=== PATIENT | female | born 1950 | race Caucasian/White ===

== ENCOUNTER 2020-07-31 10:59 | Outpatient (REF) | payer MEDICARE, SELFPAY ==
--- NOTE | 2020-07-31 11:04 | MM_ITS ---
EXAMINATION: MM SCREENING DIGITAL BREAST TOMOSYNTHESIS, BILATERAL CLINICAL INFORMATION: Screening. Asymptomatic. The lifetime risk of breast cancer based on the Tyrer-Cuzick Model is 6.4%. COMPARISON: Mammography: July 26, 2019 and studies dating back to May 28, 2012 TECHNIQUE: Digital breast tomosynthesis is performed in both the craniocaudal and mediolateral oblique views along with computer-aided detection (CAD). Synthesized 2D images are generated from the tomosynthesis. FINDINGS: The breasts are heterogeneously dense, which may obscure small masses (ACR BI-RADS breast composition Category c). There are no significant masses, abnormal calcifications, or other abnormalities. Stable region of architectural distortion from previous surgery seen upper outer aspect of the right breast. MM/MM tomosynthesis screening BI IMPRESSION: There are no significant changes from prior study. ASSESSMENT: BI-RADS 2: Benign RECOMMENDATION: Routine annual mammography screening. This patient's information was entered into a reminder system with a target due date for their next mammogram.
== END 2020-07-31 11:00 | disposition home or self-care (01) ==
LOC: HO.MAMMO 10:59
PROVIDERS: Visit Provider Internal Medicine
DX: Z12.31 Encounter for screening mammogram for malignant neoplasm of breast (principal)
CPT/HCPCS: 77063; 77067

== ENCOUNTER 2020-12-17 10:53 | Outpatient (REF) | payer MEDICARE, OTHER, SELFPAY ==
[2020-12-17 11:46] LABS: Basophils Percent Auto 0.9 % (0-2); Eosinophils Absolute Auto 0.2 X10*3/uL (0.0-0.4); Hematocrit 42.1 % (37-47); Hemoglobin 14.5 g/dl (12.0-16.0); Imm Gran Abs Auto 0.01 X10*3/uL (0.00-0.03); Imm Gran Pct Auto 0.2 % (0.0-0.4); Lymphocytes Absolute Auto 1.3 X10*3/uL (1.2-4.9); Lymphocytes Percent Auto 28.7 % (20-40); MANUAL DIFF FLAG NO; Mean Corpuscular HGB Conc 34.4 g/dl (31.0-35.0); Mean Corpuscular Hemoglobin 33.5 pg (27.0-33.0); Mean Corpuscular Volume 97.2 fL (80-98); Mean Platelet Volume 8.9 fL (9.4-12.3); Monocytes Absolute Auto 0.6 X10*3/uL (0.1-1.2); Monocytes Percent Auto 12.7 % (2-11); Neutrophils Absolute Auto 2.4 X10*3/uL (2.0-8.3); Neutrophils Percent Auto 53.5 % (45-73); Platelet Count 239 X10*3/uL (160-400); Red Blood Count 4.33 X10*6/uL (4.20-5.50); Red Cell Distribution Width 12.2 % (11.0-16.0); White Blood Count 4.5 X10*3/uL (4.8-10.8)
[2020-12-17 12:15] LABS: Alanine Aminotransferase 8 U/L (0-31); Albumin Level 4.2 g/dL (3.5-5.0); Alkaline Phosphatase 85 U/L (39-117); Anion Gap 12 (12-20); Aspartate Amino Transferase 21 U/L (5-31); Bilirubin Total 0.8 mg/dL (0.0-1.0); Blood Urea Nitrogen 22 mg/dL (9-16); Calcium 9.7 mg/dL (8.4-10.2); Carbon Dioxide 30 mmol/L (22-29); Chloride 104 mmol/L (96-108); Cholesterol 238 mg/dL; Estimated Glomerular Filt Rate 57; Glucose Fasting 88 mg/dL (60-99); HDL Cholesterol 81 mg/dL; LDL Cholesterol Calculated 145 mg/dl; Potassium 4.2 mmol/L (3.3-5.1); Sodium 142 mmol/L (135-145); Total Protein 7.2 g/dL (6.5-8.0); Triglycerides 60 mg/dL
[2020-12-17 12:34] LABS: T4 Thyroxine 6.5 ug/dL (4.5-12.0); Thyroid Stimulating Hormone 1.19 uIU/mL (0.32-4.0); Vitamin D 25-OH Total 48.7 ng/mL (>30)
[2020-12-17 12:53] LABS: Folate 19.3 ng/mL (> or = 4.0); Vitamin B12 639 pg/mL (200-900)
[2020-12-17 12:57] LABS: Glucose Urine UA NEG (NEG); Leukocyte Esterase Urine TRACE (NEG); Nitrite Urine NEG (NEG); Specific Gravity - Urine >= 1.030 (1.005-1.025); Urine Blood NEG (NEG); Urine Ketones NEG (NEG); Urine Protein NEG (NEG-TRACE)
[2020-12-17 12:59] LABS: Appearance Urine HAZY; Color Urine YELLOW
[2020-12-17 13:42] LABS: RBC Urine 0 /HPF (0); Squamous Epithelial Cell Urine 1+ /LPF
[2020-12-17 13:43] LABS: Mucus Urine 1+ /LPF; Oval Fat Bodies Urine NOTED
== END 2020-12-17 10:54 | disposition home or self-care (01) ==
LOC: HO.LAB 10:53
PROVIDERS: PCP Internal Medicine; Visit Provider Internal Medicine
DX: Z00.00 Encounter for general adult medical examination without abnormal findings (principal); I10 Essential (primary) hypertension; E78.00 Pure hypercholesterolemia, unspecified
CPT/HCPCS: 36415; 80053; 80061; 81001; 82306; 82607; 82746; 84436; 84443; 85025

== ENCOUNTER 2021-02-05 09:42 | Outpatient (REF) | payer MEDICARE, OTHER, SELFPAY ==
--- NOTE | ~2021-02-05 | MM_ITS ---
EXAMINATION: BONE DENSITOMETRY CLINICAL INDICATION: Other specified disorders of bone density and structure. COMPARISON: Previous BD dated 08/01/2018 and baseline BD dated 08/09/2005. TECHNIQUE: Using a [employer] DXA System (software version: 13.1) manufactured by [employer], dual-energy x-ray absorptiometry was performed of the lumbar spine and left hip. The images are of good technical quality. Summary results are attached. FINDINGS: AP SPINE L1-L4: Current: BMD 1.144 g/cm2, Z-score 1.7, T-score -0.3, normal, 2.4% increase from previous, 6.7% increase from baseline (<5% change is not significant). Prior: BMD 1.117 g/cm2. Baseline: BMD 1.072 g/cm2. LEFT FEMUR, NECK: Current: BMD 0.847 g/cm2, Z-score 0.6, T-score -1.4, osteopenia. Prior: BMD 0.813 g/cm2. Baseline: BMD 0.919 g/cm2. LEFT FEMUR, TOTAL: Current: BMD 0.839 g/cm2, Z-score 0.4, T-score -1.3, osteopenia, 0.8% decrease from previous, 11.4% decrease from baseline (<5% change is not significant). Prior: BMD 0.846 g/cm2. Baseline: BMD 0.947 g/cm2. IDENTIFIED RISK FACTORS: Menopause, hysterectomy. HISTORY OF FRACTURE: None listed. MEDICATIONS: Calcium supplements or multivitamin, vitamin D. MM/XR DEXA axial skeleton IMPRESSION: 1. DIAGNOSIS: Osteopenia based on the lowest T-score value of -1.4 in the femoral neck applying World Health Organization criteria. 2. 10-YEAR FRACTURE RISK PREDICTION, FRAX: Major osteoporotic fracture (clinical spine, forearm, hip or shoulder) 9.9%. Hip fracture 1.6%. 3. Treatment Recommendations: NOF guidelines recommend consideration for treatment in postmenopausal women and men age 50 and older presenting with the following: -A hip or vertebral (clinical or morphometric) fracture. -T-score less than or equal to -2.5 at the femoral neck or spine after appropriate evaluation to exclude secondary causes. -Low bone mass at the hip or spine and a 10-year fracture probability by FRAX of greater than or equal to 3% for hip fracture or greater than or equal to 20% for major osteoporotic fracture based on the [place] adapted WHO algorithm. 4. Other Recommendations: All treatment decisions require clinical judgment and consideration of individual patient factors, including patient preferences, comorbidities, previous drug use, risk factors not captured in the FRAX model (e.g. frailty, falls, vitamin D deficiency, increased bone turnover, interval significant decline in bone density) and possible under or overestimation of fracture risk by FRAX. Additional medical evaluation for secondary cause of low bone mineral density may be appropriate. FUTURE SCAN RECOMMENDATION: People with diagnosed cases of osteoporosis or at high risk for fracture should have regular bone mineral density tests. For patients eligible for Medicare, routine testing is allowed once every 2 years. The testing frequency can be increased to one year for patients who have rapidly progressing disease, those who are receiving or discontinuing medical therapy to restore bone mass, or have additional risk factors.
== END 2021-02-05 09:43 | disposition home or self-care (01) ==
LOC: HO.MAMMO 09:42
PROVIDERS: PCP Internal Medicine; Visit Provider Internal Medicine
DX: Z13.820 Encounter for screening for osteoporosis (principal); M85.859 Other specified disorders of bone density and structure, unspecified thigh; Z78.0 Asymptomatic menopausal state; Z98.890 Other specified postprocedural states; Z79.899 Other long term (current) drug therapy
CPT/HCPCS: 77080

== ENCOUNTER 2021-08-26 14:18 | Outpatient (REF) | payer MEDICARE, OTHER, SELFPAY ==
--- NOTE | ~2021-08-26 | MM_ITS ---
EXAMINATION: MM SCREENING DIGITAL BREAST TOMOSYNTHESIS, BILATERAL CLINICAL INFORMATION: Screening. Asymptomatic.. Status post previous right breast biopsy. The lifetime risk of breast cancer based on the Tyrer-Cuzick Model is 4.0%. COMPARISON: Mammography: July 31, 2020 and studies dating back to May 28, 2012 TECHNIQUE: Digital breast tomosynthesis is performed in both the craniocaudal and mediolateral oblique views along with computer-aided detection (CAD). Synthesized 2D images are generated from the tomosynthesis. FINDINGS: The breasts are heterogeneously dense, which may obscure small masses (ACR BI-RADS breast composition Category c). There are no new significant masses, abnormal calcifications, or other abnormalities. Region of architectural distortion anterior right breast again seen from previous biopsy. MM/MM tomosynthesis screening BI IMPRESSION: There are no significant changes from prior study. ASSESSMENT: BI-RADS 2: Benign RECOMMENDATION: Routine annual mammography screening. This patient's information was entered into a reminder system with a target due date for their next mammogram.
== END 2021-08-26 14:19 | disposition home or self-care (01) ==
LOC: HO.MAMMO 14:18
PROVIDERS: PCP Internal Medicine; Visit Provider Internal Medicine
DX: Z12.31 Encounter for screening mammogram for malignant neoplasm of breast (principal)
CPT/HCPCS: 77063; 77067

== ENCOUNTER 2022-03-30 09:49 | Outpatient (REF) | payer MEDICARE, OTHER, SELFPAY ==
[2022-03-30 10:03] LABS: MANUAL DIFF FLAG NO
[2022-03-30 10:18] LABS: Basophils Absolute Auto 0.1 X10*3/uL (0.0-0.2); Basophils Percent Auto 1.1 % (0-2); Eosinophils Absolute Auto 0.2 X10*3/uL (0.0-0.4); Eosinophils Percent Auto 5.5 % (0-4); Hematocrit 44.6 % (37.0-47.0); Hemoglobin 15.2 g/dl (12.0-16.0); Imm Gran Abs Auto 0.01 X10*3/uL (0.00-0.03); Imm Gran Pct Auto 0.2 % (0.0-0.4); Lymphocytes Absolute Auto 1.3 X10*3/uL (1.2-4.9); Lymphocytes Percent Auto 29.1 % (20-40); Mean Corpuscular HGB Conc 34.1 g/dl (31.0-35.0); Mean Corpuscular Hemoglobin 33.6 pg (27.0-33.0); Mean Corpuscular Volume 98.5 fL (80.0-98.0); Mean Platelet Volume 8.8 fL (9.4-12.3); Monocytes Absolute Auto 0.5 X10*3/uL (0.1-1.2); Monocytes Percent Auto 10.2 % (2-11); Neutrophils Absolute Auto 2.4 x10*3/uL (2.0-8.3); Neutrophils Percent Auto 53.9 % (45-73); Platelet Count 267 X10*3/uL (160-400); Red Blood Count 4.53 X10*6/uL (4.20-5.50); Red Cell Distribution Width 12.3 % (11.0-16.0); White Blood Count 4.4 X10*3/uL (4.8-10.8)
[2022-03-30 10:48] LABS: Alanine Aminotransferase 13 U/L (0-31); Albumin Level 4.3 g/dL (3.5-5.0); Alkaline Phosphatase 93 U/L (39-117); Anion Gap 16 (12-20); Aspartate Amino Transferase 23 U/L (5-31); Bilirubin Total 0.7 mg/dL (0.0-1.0); Blood Urea Nitrogen 18 mg/dL (9-16); Calcium 9.8 mg/dL (8.4-10.2); Carbon Dioxide 27 mmol/L (22-29); Chloride 104 mmol/L (96-108); Estimated Glomerular Filt Rate 54; Glucose Random 94 mg/dL (60-115); Potassium 4.5 mmol/L (3.3-5.1); Sodium 142 mmol/L (135-145); Total Protein 7.4 g/dL (6.5-8.0)
[2022-03-30 11:09] LABS: Free T4 (Free Thyroxine) 0.96 ng/dL (0.71-1.85); Vitamin D 25-OH Total 49.8 ng/mL (>30)
[2022-03-30 11:11] LABS: Thyroid Stimulating Hormone 1.88 uIU/mL (0.32-4.0)
[2022-03-30 11:17] LABS: Folate 17.3 ng/mL (> or = 4.0); Vitamin B12 573 pg/mL (200-900)
== END 2022-03-30 09:50 | disposition home or self-care (01) ==
LOC: HO.LAB 09:49
PROVIDERS: PCP Internal Medicine; Visit Provider Nurse Practitioner
DX: Z01.818 Encounter for other preprocedural examination (principal); E78.00 Pure hypercholesterolemia, unspecified; M85.859 Other specified disorders of bone density and structure, unspecified thigh; M81.0 Age-related osteoporosis without current pathological fracture
CPT/HCPCS: 36415; 80053; 82306; 82607; 82746; 84439; 84443; 85025; 99202

== ENCOUNTER 2022-08-30 07:58 | Outpatient (REF) | payer MEDICARE, OTHER, SELFPAY ==
--- NOTE | ~2022-08-30 | MM_ITS ---
EXAMINATION: MM SCREENING DIGITAL BREAST TOMOSYNTHESIS, BILATERAL CLINICAL INFORMATION: Screening. Asymptomatic. Status post previous right breast biopsy with benign result. The lifetime risk of breast cancer based on the Tyrer-Cuzick Model is 4.0%. COMPARISON: Mammography: August 26, 2021 and studies dating back to June 10, 2015 TECHNIQUE: Digital breast tomosynthesis is performed in both the craniocaudal and mediolateral oblique views along with computer-aided detection (CAD). Synthesized 2D images are generated from the tomosynthesis. FINDINGS: The breasts are heterogeneously dense, which may obscure small masses (ACR BI-RADS breast composition Category c). There is stable architectural distortion from previous biopsy of the right breast in the upper outer aspect. No new abnormal dominant mass or suspicious grouping of microcalcifications is identified. MM/MM tomosynthesis screening BI IMPRESSION: No significant changes ASSESSMENT: BI-RADS 2: Benign RECOMMENDATION: Routine annual mammography screening. This patient's information was entered into a reminder system with a target due date for their next mammogram.
== END 2022-08-30 07:59 | disposition home or self-care (01) ==
LOC: HO.MAMMO 07:58
PROVIDERS: PCP Internal Medicine; Visit Provider Internal Medicine
DX: Z12.31 Encounter for screening mammogram for malignant neoplasm of breast (principal)
CPT/HCPCS: 77063; 77067

== ENCOUNTER 2022-09-16 12:07 | Outpatient (REF) | payer MEDICARE, OTHER, SELFPAY ==
[2022-09-16 12:29] LABS: MANUAL DIFF FLAG NO
[2022-09-16 13:02] LABS: Basophils Absolute Auto 0.1 X10*3/uL (0.0-0.2); Basophils Percent Auto 0.9 % (0-2); Eosinophils Absolute Auto 0.3 X10*3/uL (0.0-0.4); Eosinophils Percent Auto 4.7 % (0-4); Hematocrit 41.6 % (37.0-47.0); Hemoglobin 14.3 g/dl (12.0-16.0); Imm Gran Abs Auto 0.01 X10*3/uL (0.00-0.03); Imm Gran Pct Auto 0.2 % (0.0-0.4); Lymphocytes Absolute Auto 1.6 X10*3/uL (1.2-4.9); Lymphocytes Percent Auto 30.7 % (20-40); Mean Corpuscular HGB Conc 34.4 g/dl (31.0-35.0); Mean Corpuscular Hemoglobin 33.1 pg (27.0-33.0); Mean Corpuscular Volume 96.3 fL (80.0-98.0); Mean Platelet Volume 9.1 fL (9.4-12.3); Monocytes Absolute Auto 0.7 X10*3/uL (0.1-1.2); Monocytes Percent Auto 12.5 % (2-11); Neutrophils Absolute Auto 2.7 x10*3/uL (2.0-8.3); Platelet Count 262 X10*3/uL (160-400); Red Blood Count 4.32 X10*6/uL (4.20-5.50); Red Cell Distribution Width 11.9 % (11.0-16.0); White Blood Count 5.4 X10*3/uL (4.8-10.8)
[2022-09-16 14:16] LABS: Alanine Aminotransferase 10 U/L (0-31); Alkaline Phosphatase 83 U/L (39-117); Anion Gap 12 (12-20); Aspartate Amino Transferase 22 U/L (5-31); Bilirubin Total 0.8 mg/dL (0.0-1.0); Blood Urea Nitrogen 18 mg/dL (9-16); Calcium 9.3 mg/dL (8.4-10.2); Carbon Dioxide 28 mmol/L (22-29); Chloride 104 mmol/L (96-108); Cholesterol 273 mg/dL; Estimated Glomerular Filt Rate 51; Glucose Random 81 mg/dL (60-115); HDL Cholesterol 62 mg/dL; LDL Cholesterol Calculated 194 mg/dl; Potassium 4.2 mmol/L (3.3-5.1); Sodium 140 mmol/L (135-145); Total Protein 6.9 g/dL (6.5-8.0); Triglycerides 87 mg/dL
== END 2022-09-16 12:08 | disposition home or self-care (01) ==
LOC: HO.LAB 12:07
PROVIDERS: PCP Internal Medicine; Visit Provider Internal Medicine
DX: E78.00 Pure hypercholesterolemia, unspecified (principal)
CPT/HCPCS: 36415; 80053; 80061; 85025

== ENCOUNTER 2022-12-26 12:16 | Outpatient (REF) | payer MEDICARE, OTHER, SELFPAY ==
[2022-12-26 14:24] LABS: Alanine Aminotransferase 9 U/L (0-31); Alkaline Phosphatase 74 U/L (39-117); Anion Gap 13 (12-20); Aspartate Amino Transferase 19 U/L (5-31); Bilirubin Total 0.7 mg/dL (0.0-1.0); Blood Urea Nitrogen 16 mg/dL (9-16); Calcium 9.8 mg/dL (8.4-10.2); Carbon Dioxide 28 mmol/L (22-29); Chloride 103 mmol/L (96-108); Cholesterol 164 mg/dL; Estimated Glomerular Filt Rate 60; Glucose Random 83 mg/dL (60-115); HDL Cholesterol 67 mg/dL; LDL Cholesterol Calculated 80 mg/dl; Potassium 3.9 mmol/L (3.3-5.1); Sodium 140 mmol/L (135-145); Total Protein 7.1 g/dL (6.5-8.0); Triglycerides 89 mg/dL
== END 2022-12-26 12:17 | disposition home or self-care (01) ==
LOC: HO.LAB 12:16
PROVIDERS: PCP Internal Medicine; Visit Provider Internal Medicine
DX: E78.00 Pure hypercholesterolemia, unspecified (principal)
CPT/HCPCS: 36415; 80053; 80061

== ENCOUNTER 2023-02-07 08:51 | Outpatient (REF) | payer MEDICARE, OTHER, SELFPAY ==
--- NOTE | ~2023-02-07 | MM_ITS ---
EXAMINATION: BONE DENSITOMETRY CLINICAL INDICATION: Age-related osteoporosis without current pathological fracture. COMPARISON: Previous BD dated 02/05/2021 and baseline BD dated 08/09/2005. TECHNIQUE: Using a [employer] DXA System (software version: 13.1) manufactured by [employer], dual-energy x-ray absorptiometry was performed of the lumbar spine and left hip. The images are of good technical quality. Summary results are attached. FINDINGS: LEFT FEMUR, NECK: Current: BMD 0.825 g/cm2, Z-score 0.5, T-score -1.5, osteopenia. Prior: BMD 0.847 g/cm2. Baseline: BMD 0.919 g/cm2. LEFT FEMUR, TOTAL: Current: BMD 0.793 g/cm2, Z-score 0.2, T-score -1.7, osteopenia, 5.5% decrease from previous, 16.3% decrease from baseline (<5% change is not significant). Prior: BMD 0.839 g/cm2. Baseline: BMD 0.947 g/cm2. AP SPINE L1-L4: Current: BMD 1.168 g/cm2, Z-score 1.9, T-score -0.1, normal, 2.1% increase from previous, 9.0% increase from baseline (<5% change is not significant). Prior: BMD 1.144 g/cm2. Baseline: BMD 1.072 g/cm2. IDENTIFIED RISK FACTORS: Menopause, hysterectomy, thiazide. HISTORY OF FRACTURE: None listed. MEDICATIONS: Calcium supplements or multivitamin, vitamin D. MM/XR DEXA axial skeleton IMPRESSION: 1. DIAGNOSIS: Osteopenia based on the lowest T-score value of -1.7 in the total femur applying World Health Organization criteria. 2. 10-YEAR FRACTURE RISK PREDICTION, FRAX: Major osteoporotic fracture (clinical spine, forearm, hip or shoulder) 10.9%. Hip fracture 2.2%. 3. Treatment Recommendations: NOF guidelines recommend consideration for treatment in postmenopausal women and men age 50 and older presenting with the following: -A hip or vertebral (clinical or morphometric) fracture. -T-score less than or equal to -2.5 at the femoral neck or spine after appropriate evaluation to exclude secondary causes. -Low bone mass at the hip or spine and a 10-year fracture probability by FRAX of greater than or equal to 3% for hip fracture or greater than or equal to 20% for major osteoporotic fracture based on the [place] adapted WHO algorithm. 4. Other Recommendations: All treatment decisions require clinical judgment and consideration of individual patient factors, including patient preferences, comorbidities, previous drug use, risk factors not captured in the FRAX model (e.g. frailty, falls, vitamin D deficiency, increased bone turnover, interval significant decline in bone density) and possible under or overestimation of fracture risk by FRAX. Additional medical evaluation for secondary cause of low bone mineral density may be appropriate. FUTURE SCAN RECOMMENDATION: People with diagnosed cases of osteoporosis or at high risk for fracture should have regular bone mineral density tests. For patients eligible for Medicare, routine testing is allowed once every 2 years. The testing frequency can be increased to one year for patients who have rapidly progressing disease, those who are receiving or discontinuing medical therapy to restore bone mass, or have additional risk factors.
== END 2023-02-07 08:52 | disposition home or self-care (01) ==
LOC: HO.MAMMO 08:51
PROVIDERS: PCP Internal Medicine; Visit Provider Internal Medicine
DX: M81.0 Age-related osteoporosis without current pathological fracture (principal); M85.859 Other specified disorders of bone density and structure, unspecified thigh
CPT/HCPCS: 77080

== ENCOUNTER → 2023-02-07 09:15 | Outpatient (BNV) | payer MEDICARE, OTHER, SELFPAY | PROVIDERS: PCP Internal Medicine; Visit Provider Radiology Diagnostic Radiology | DX: M81.0 Age-related osteoporosis without current pathological fracture (principal) | CPT/HCPCS: 77080 ==

== ENCOUNTER 2023-02-13 09:23 | Day surgery (SDC) | payer MEDICARE, OTHER, SELFPAY ==
--- NOTE | 2023-02-10 11:57 | P.CONAN_ITS ---
Documented by User: Julia Naik NP 02/10/23 11:58 HPI - Anesthesia Eval Consult details Narrative: 72yo F for Colonoscopy PMFSH Active Problems Active Problems: All Active Problems (Updated 12/27/22 @ 08:46 by Andrew Sherwood MD) COVID-19 virus infection (Acute) Tubular adenoma of colon (Acute) Medicare annual wellness visit, initial (Acute) Hemorrhoid (Acute) Constipation (Acute) Contact dermatitis (Acute) Osteopenia (Acute) Annual physical exam (Acute) Hypercholesterolemia (Acute) Hypertension (Acute) Past Medical History Medical History Bladder prolapse Closed dislocation of glenohumeral joint Constipation Hypercholesterolemia Hypertension Osteopenia Varicose veins of both lower extremities Family History Family History Father Colon cancer Surgical History Surgical History Dermatochalasia H/O colonoscopy H/O: hysterectomy History of appendectomy S/P breast biopsy, right Social History Social History Housing: House Alcohol intake: current Alcohol intake frequency: holidays/special occasions only Alcohol type: wine Patient Tobacco Use Status: Never used Tobacco e-Cigarette/Vaping Use: Never Used Second Hand Smoke Exposure: No Are you DNR?: No Advance Directives: No Advance Directives Information Provided: Yes service: No Current occupational status: retired Cognitive needs: No Hearing needs: No Vision needs: Yes Meds Allergies Allergy/AdvReac Type Severity Reaction Status Date / Time scallops AdvReac Unknown VOMITING Verified 12/27/22 08:38 Sodium Acetate Allergy Unknown Nausea and Uncoded 12/27/22 08:38 Vomiting Home Medications Medication Instructions Recorded Confirmed Last Taken Type Lactobacillus rhamnosus GG 10 1 cap PO DAILY 12/21/20 02/13/23 Unknown History billion cell capsule (Culturelle) calcium carb and lactate 200 1 tab PO DAILY 12/21/20 02/13/23 Unknown History mg-vitamin D3 6.25 mcg (250 unit) tablet cholecalciferol (vitamin D3) 50 50 mcg PO DAILY 12/21/20 02/13/23 Unknown History mcg (2,000 unit) capsule garlic 500 mg capsule 500 mg PO DAILY 12/21/20 02/13/23 Unknown History multivitamin (One-A-Day Essential 1 tab PO DAILY 12/21/20 02/13/23 Unknown History tablet) vitamin E (dl, acetate) 180 mg 45 mg PO DAILY 12/21/20 02/13/23 Unknown History (400 unit) capsule pramoxine-zinc acetate 1 %-0.1 % 1 appl topical TID PRN rash 03/04/21 02/13/23 Unknown History lotion (Calamine Clear) Exam Exam Date and Time: February 10, 2023 115 Pertinent Lab Results Pertinent Lab Results: Laboratory Tests 09/16/22 12/26/22 12:27 12:22 WBC 5.4 Hgb 14.3 Hct 41.6 Plt Count 262 Sodium 140 Potassium 3.9 Chloride 103 Carbon Dioxide 28 BUN 16 Creatinine 0.92 Assessment and Plan Assessment Anesthesia Assessment: Chart Reviewed Documented by User: Andie Johnson MD 02/13/23 11:21 [facility] Active Problems Active Problems: All Active Problems (Updated 02/13/23 @ 11:11 by Andie Johnson MD) COVID-19 virus infection (Acute) Tubular adenoma of colon (Acute) Medicare annual wellness visit, initial (Acute) Hemorrhoid (Acute) Constipation (Acute) Contact dermatitis (Acute) Osteopenia (Acute) Annual physical exam (Acute) Hypercholesterolemia (Acute) Hypertension (Acute) Past Medical History Medical History Bladder prolapse Closed dislocation of glenohumeral joint Constipation Hypercholesterolemia Hypertension Osteopenia Varicose veins of both lower extremities Family History Family History Father Colon cancer Family history of problems with anesthesia: No Surgical History Surgical History Dermatochalasia H/O colonoscopy H/O: hysterectomy History of appendectomy S/P breast biopsy, right History of Problems with Anesthesia: No Social History Social History Housing: House Alcohol intake: current Alcohol intake frequency: holidays/special occasions only Alcohol type: wine Patient Tobacco Use Status: Never used Tobacco e-Cigarette/Vaping Use: Never Used Second Hand Smoke Exposure: No Are you DNR?: No Advance Directives: No Advance Directives Information Provided: Yes service: No Current occupational status: retired Cognitive needs: No Hearing needs: No Vision needs: Yes Meds Allergies Allergy/AdvReac Type Severity Reaction Status Date / Time scallops AdvReac Unknown VOMITING Verified 12/27/22 08:38 Sodium Acetate Allergy Unknown Nausea and Uncoded 12/27/22 08:38 Vomiting Home Medications Medication Instructions Recorded Confirmed Last Taken Type Lactobacillus rhamnosus GG 10 1 cap PO DAILY 12/21/20 02/13/23 Unknown History billion cell capsule (Culturelle) calcium carb and lactate 200 1 tab PO DAILY 12/21/20 02/13/23 Unknown History mg-vitamin D3 6.25 mcg (250 unit) tablet cholecalciferol (vitamin D3) 50 50 mcg PO DAILY 12/21/20 02/13/23 Unknown History mcg (2,000 unit) capsule garlic 500 mg capsule 500 mg PO DAILY 12/21/20 02/13/23 Unknown History multivitamin (One-A-Day Essential 1 tab PO DAILY 12/21/20 02/13/23 Unknown History tablet) vitamin E (dl, acetate) 180 mg 45 mg PO DAILY 12/21/20 02/13/23 Unknown History (400 unit) capsule pramoxine-zinc acetate 1 %-0.1 % 1 appl topical TID PRN rash 03/04/21 02/13/23 Unknown History lotion (Calamine Clear) Exam Height,Weight and Vital Signs: Height 5 ft 2.5 in Weight 57.153 kg Vital Signs Temp Pulse Resp BP Pulse Ox O2 Del Method 02/13/23 10:03 97.2 F 77 16 146/88 H 95 Room Air Airway Mallampati Class: II TM Dist: >3cm Neck ROM: Full Loose/Missing/Broken Teeth: Yes (Temporary crown back intact) Heart: RRR Lungs: CTAB Assessment and Plan Assessment Anesthesia Assessment: Anesthesia Plan Discussed Final Anesthetic Review Family History of Problems with Anesthesia: No History of Problems with Anesthesia: No NPO: Yes ASA Class: II Final Preanesthetic Review: No Changes in Pt Med Stat, Meds/Allgs Chart Reviewed, Consent Obtained/Reviewed and Anes Risks/Benef Reviewed Patient Risk: Low Procedure Risk: Low Assessment/Block/Sedation in SS: Assess/Block/Sedation-SS Anesthetic Plan Anesthetic Plan: MAC: Disposition: Standard PACU
[2023-02-13 09:53] VITALS: BMI 22.7
[2023-02-13 09:57] VITALS: BMI 22.7
[2023-02-13 10:03] VITALS: BP 146/88; PULSE 77; RESP 16; TEMP 36.2; O2SAT 95
[2023-02-13] MEDS: Lactated Ringers 1,000 ML 100 ML IVCONT (10:31)
--- NOTE | 2023-02-13 10:34 | MHC.SHP ---
Pre-Procedural Eval Section A Date of Service: 02/13/23 The patient is an INPATIENT: No The History & Physical has been completed within 30 days and I have reviewed it.: No Section B Chief Complaint: Benign neoplasm of colon, unspecified Relevant Family History (Specify if Yes): Yes Relevant Social History: None Present Medications: see Short Stay Collaborative assessment Medical History: Significant History (Bladder prolapse Closed dislocation of glenohumeral joint Constipation Hypercholesterolemia Hypertension Osteopenia Varicose veins of both lower extremities) History of Previous Operations: Relevant previous surgery/procedure and date(s) (Dermatochalasia H/O colonoscopy H/O: hysterectomy History of appendectomy S/P breast biopsy, right) Allergies: Allergies Allergy/AdvReac Type Severity Reaction Status Date / Time scallops AdvReac Unknown VOMITING Verified 12/27/22 08:38 Sodium Acetate Allergy Unknown Nausea and Uncoded 12/27/22 08:38 Vomiting Review of Systems Sugical H&P ROS: Negative: Constitution, Cardiovascular, Respiratory and Gastrointestinal Exam Surgical H&P Exam: Normal: Heart, Normal: Lungs, Normal: Extremities and Normal: Abdomen Plan Diagnosis/Plan: Unchanged I have reviewed the history and physical and performed a pertinent physical examination on my patient. No changes have occurred unless specified. Time Spent With Patient Time: Total time managing care of this patient today ____ minutes.
--- NOTE | 2023-02-13 11:51 | W.PM.OPN ---
Operative Note Operative Note Date of Service: 02/13/23 Narrative: COLONOSCOPY TILL CECUM WITH BIOPSIES, SNARE POLYPECTOMY, SUBMUCOSAL INJECTION AND HEMOCLIP PLACEMENT Pre-op diagnosis: Surveillance for colon polyps Post-op diagnosis:? Colon polyps, diverticulosis, hemorrhoids Endoscopist:? Justus Vazquez MD Anesthesia:?MAC Consent: Indications for the procedure and potential complications of bleeding, perforation, reaction to medications and missed diagnosis were discussed with the patient and informed consent was obtained. Instrument: Olympus PCF H 190 L variable stiffness pediatric colonoscope Monitoring: Vital signs and clinical assessment, intermittent blood pressure monitoring, continuous EKG monitoring, Pulse oximetry and Carbon Dioxide monitoring were done throughout the procedure. Please see anesthesia flowsheet. Colon withdrawl time was 17 minutes. Procedure: The patient was placed in the left lateral decubitis position and pre-procedure medications were administered. After a digital rectal examination of the ano-rectum, the video colonoscope was inserted into the rectum and advanced through the colon to the cecum. The colonoscope was slowly withdrawn in a retrograde panoramic fashion and the colon mucosa was carefully examined including a retroflexed view of the rectum. Findings and interventions are described below. Procedure Difficulty: Without difficulty Findings: Terminal Ileum: Not evaluated Cecum: A 12 to 15 mm flat polyp (opposite the ileocecal valve). Polyp was raised with 5 cc of Eleview and removed with a hot stiff snare. A 2nd 3-4 mm sessile polyp - removed with a cold biopsy Ascending Colon: Two 2-4 mm sessile polyps in the mid ascending colon - removed with a cold biopsy Transverse Colon: Normal Descending Colon: Normal Sigmoid Colon: Moderate diverticulosis Rectum: Normal Ano-rectum: Small internal hemorrhoids Colon preparation: Excellent Impression and Post Procedure Diagnosis: Colonoscopy Findings: Three small and one medium sized polyps removed Moderate diverticulosis seen in the sigmoid colon Small hemorrhoids on retroflexed exam. Plan: Await pathology results Patient has an appointment on 02/28/23 in the [facility] with Marlin Be NP. Repeat Colonoscopy interval based on path results - in 3 years if polyps are adenomatous (and to check polypectomy site in the cecum) and due to a history of adenomatous colon polyps.. Above findings were reviewed with the patient and colon polyps and diverticulosis handouts were given in the discharge area
[2023-02-13 12:29] VITALS: BP 90/50; PULSE 62; RESP 16; TEMP 36.2; O2SAT 95
[2023-02-13 12:42] VITALS: BP 108/50; PULSE 58; RESP 16; O2SAT 95
[2023-02-13 12:55] VITALS: BP 116/66; PULSE 61; RESP 16; TEMP 36.6; O2SAT 96
== END 2023-02-13 13:30 | disposition home or self-care (01) ==
PROVIDERS: PCP Internal Medicine; Visit Provider Internal Medicine Gastroenterology
PROC: 0DJD8ZZ Inspection of Lower Intestinal Tract, Via Natural or Artificial Opening Endoscopic (ICD-10-PCS; CPT 45378; principal; 2023-02-13 11:50)
DX: Z12.11 Encounter for screening for malignant neoplasm of colon (principal); Z86.010 Personal history of colon polyps; D12.0 Benign neoplasm of cecum; K63.5 Polyp of colon; K57.30 Diverticulosis of large intestine without perforation or abscess without bleeding; K64.8 Other hemorrhoids; K59.00 Constipation, unspecified; N81.10 Cystocele, unspecified; I10 Essential (primary) hypertension; E78.00 Pure hypercholesterolemia, unspecified; Z88.8 Allergy status to other drugs, medicaments and biological substances; Z80.0 Family history of malignant neoplasm of digestive organs
CPT/HCPCS: 45385; 45380; 45381; 88305

== ENCOUNTER → 2023-02-13 09:23 | Outpatient (BNV) | payer MEDICARE, OTHER, SELFPAY | PROVIDERS: PCP Internal Medicine; Visit Provider Internal Medicine Gastroenterology | DX: Z12.11 Encounter for screening for malignant neoplasm of colon (principal); K57.30 Diverticulosis of large intestine without perforation or abscess without bleeding; K64.8 Other hemorrhoids; D12.0 Benign neoplasm of cecum; D12.2 Benign neoplasm of ascending colon | CPT/HCPCS: 45380; 45381; 45385 ==

== ENCOUNTER 2023-02-28 10:10 | Outpatient (AMB) | payer MEDICARE, OTHER, SELFPAY ==
[2023-02-28 10:17] VITALS: BP 157/104; PULSE 90; BMI 21.3
--- NOTE | 2023-02-28 10:17 | MHC.OFFVIS ---
Intake Vital Signs 02/28/23 10:17 02/28/23 10:25 Height 5 ft 5 in Weight 128 lb BMI 21.3 BP 157/104 H 153/100 H Blood Pressure Location Rt brachial Position Sitting Pulse 90 Intake Visit Reasons: S/p jose- George Intake Note: Patient presents to in office visit today in colonoscopy follow up. Patient reports doing well. Denies other GI symptoms concerns. 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 Singh and she had a small TA. She has occasional CIC but manageable. She had severe sleepiness after conscious sedation and nausea, would do better on propofol. She denies any cardiac or respiratory problems. No ID problems She had a past TA, her father may have had CRC, she is unsure, at age 78. [address] Vazquez as endoscopist. (2) Tubular adenoma of colon: ?Code(s): D12.6 - Benign neoplasm of colon, unspecified ? ? ? Orders: Orders Comprehensive Met. Panel Today Z01.818 - Encounte r for other prepro cedural examinatio n ? Complete Blood Cou nt Auto Diff Today Z01.818 - Encounte r for other prepro cedural examinatio n ? Medications: New peg 3350-electroly yaritza 236-22.74-6.74 -5.86 gram (Golyt jaz) ?? until feca l effluent is olimpia r; do not exceed a total volume of 2 ,000 mL 240 mL? PO Q10M 1 day 4,000 mL 0RF Z12.11 - Encounter for screening for malignant neoplas m of colon COLONOSCOPY 02/13/23 Findings: Terminal Ileum: Not evaluated Cecum:? A 12 to 15 mm flat polyp (opposite the ileocecal valve).? Polyp was raised with 5 cc of [place] and removed with a hot stiff snare. A 2nd 3-4 mm sessile polyp - removed with a cold biopsy Ascending Colon:? Two 2-4 mm sessile polyps in the mid ascending colon - removed with a cold biopsy Transverse Colon:? Normal Descending Colon:? Normal Sigmoid Colon:? Moderate diverticulosis Rectum:? Normal Ano-rectum:? Small internal hemorrhoids Colon preparation: Excellent ? Impression and Post Procedure Diagnosis: Colonoscopy Findings: Three small and one medium sized polyps removed Moderate diverticulosis seen in the sigmoid colon Small hemorrhoids on retroflexed exam. Plan: Await pathology results Patient has an appointment on 02/28/23 in the GI Clinic with? Marlin Be NP. Repeat Colonoscopy interval based on path results - in 3 years if polyps are adenomatous (and to check polypectomy site in the cecum) and due to a history of adenomatous colon polyps.. BIOPSY Received: 02/13/23 Diagnosis A.? Cecum, polypectomies (2):? Fragments of sessile serrated lesions/polyps; negative for cytologic dysplasia. B.? Colon, ascending, polypectomies (2):? Colonic mucosa with mild surface hyperplastic changes. TODAY'S VISIT The procedure needs to be repeated in 3 years r/t the size of the sesslie cecal polyp. The procedure was well tolerated. The results were explained and the patient is agreeable to the follow-up interval as stated. The bowel pattern has returned to normal. Education was provided to tell any 1st degree relatives about their findings to be sure that they are screened by age 45. Educated that they will be put on a recall list when it is time for their repeat scope but should they move out of state or away from the hospital they will need to remember along with their primary to repeat the procedure in a timely fashion to avoid any adverse complications. Her blood pressure was quite high today. She says that she has white coat hypertension and it is usually normal at home and she is aware of this. She is on hydrochlorothiazide. [facility] Medical History Bladder prolapse Closed dislocation of glenohumeral joint Constipation Hypercholesterolemia Hypertension Osteopenia Varicose veins of both lower extremities Surgical History Dermatochalasia H/O colonoscopy H/O: hysterectomy History of appendectomy S/P breast biopsy, right Family History Father Colon cancer Social History Housing: House Alcohol intake: current Alcohol intake frequency: holidays/special occasions only Alcohol type: wine Patient Tobacco Use Status: Never used Tobacco e-Cigarette/Vaping Use: Never Used Second Hand Smoke Exposure: No service: No Current occupational status: retired Cognitive needs: No Hearing needs: No Vision needs: Yes Review of Systems Const Denies fatigue, Denies fever(s), Denies night sweats, Denies poor appetite and Denies weight loss Eyes Reports requires corrective lenses ENT Reports Normal hearing present, Denies dental pain, Denies dysphagia, Denies hearing loss, Denies mouth pain, Denies odynophagia, Denies throat swelling, Denies tongue swelling and Reports other (Dentition adequate) GI Denies abdominal pain, Denies melena, Denies bloating, Denies hematochezia, Denies constipation, Denies GI cramping, Denies dysphagia, Denies excessive flatus, Denies early satiety, Denies heartburn, Denies diarrhea, Denies nausea, Denies odynophagia, Denies vomiting and Denies hematemesis Skin/Breast Denies pruritus, Denies lesions, Denies rash and Denies jaundice Neuro Reports Normal hearing present and Denies Abnormal speech present Endo Denies fatigue Aller/Immun Denies throat swelling and Denies tongue swelling Physical Exam Vital Signs: Last Vital Signs Pulse 90 02/28/23 10:17 BP 153/100 H 02/28/23 10:25 BMI result Body Mass Index 21.3 Const General: cooperative, no acute distress, well developed and well groomed Nutritional Appearance: average body habitus and well nourished Orientation/consciousness: oriented to person, oriented to place and oriented to time Limitations: No language barrier HEENT Head: Yes normocephalic and Yes atraumatic Eyes General: appearance normal, both eyes and all related structures Pupils: Equal, round and reactive pupils present Neck Neck: Yes normal visual inspection and Yes no lymphadenopathy Thyroid: Thyroid normal Resp Effort & Inspection: normal respiratory effort and able to speak in complete sentences Auscultation: clear to auscultation bilaterally Cardio Rate: regular rate Rhythm: regular rhythm Heart sounds: Normal, physiologic split S2 sound present Peripheral pulses: radial pulses present and posterior tibial pulses present GI Inspection: No distended and No Abdominal panniculus present Palpation (GI): Soft to palpation, nontender, no guarding, not rigid and No hepatosplenomegaly present Percussion: Yes normal to percussion Auscultation: normal bowel sounds Rectal Exam - Female: deferred Skin General skin exam: no rashes or lesions noted, turgor normal, skin not dry, no jaundice, No spider nevi and no striae Rashes: no rashes Nails: normal Neuro General: oriented to person, oriented to place and oriented to time Cranial nerves: Yes Equal, round and reactive pupils present and Yes Normal hearing present Speech: No Abnormal speech present Extrem General: Yes normal to inspection, No clubbing, No cyanosis and No edema Psych Appearance: grossly normal and well kempt Mental Status: mental status grossly normal Speech and movement: Normal speech and movement present Affect: normal affect Attitude: cooperative Thought process: Normal thought process present and not confabulating Thought content: Normal thought content present Insight: Good insight present (Psych) Judgement: Good judgement present (Psych) Assessment & Plan Assessment & Plan (1) Tubular adenoma of colon: Comment: 2022=1 sessile TA repeat 3 years Code(s): D12.6 - Benign neoplasm of colon, unspecified Plan: The procedure needs to be repeated in 3 years r/t the size of the sesslie cecal polyp. The procedure was well tolerated. The results were explained and the patient is agreeable to the follow-up interval as stated. The bowel pattern has returned to normal. Education was provided to tell any 1st degree relatives about their findings to be sure that they are screened by age 45. Educated that they will be put on a recall list when it is time for their repeat scope but should they move out of state or away from the hospital they will need to remember along with their primary to repeat the procedure in a timely fashion to avoid any adverse complications. Her blood pressure was quite high today. She says that she has white coat hypertension and it is usually normal at home and she is aware of this. She is on hydrochlorothiazide. Coding Level of Care Code Est Pt Level 3 (81630) Diagnoses Tubular adenoma of colon D12.6
[2023-02-28 10:25] VITALS: BP 153/100
== END 2023-02-28 10:40 | disposition home or self-care (01) ==
PROVIDERS: PCP Internal Medicine; Visit Provider Nurse Practitioner
DX: D12.6 Benign neoplasm of colon, unspecified (principal)
CPT/HCPCS: 99213

== ENCOUNTER → 2023-02-28 10:10 | Outpatient (BNVA) | payer MEDICARE, OTHER, SELFPAY | PROVIDERS: PCP Internal Medicine; Visit Provider Nurse Practitioner | DX: K57.30 Diverticulosis of large intestine without perforation or abscess without bleeding (principal); D12.0 Benign neoplasm of cecum; K64.8 Other hemorrhoids; Z98.890 Other specified postprocedural states | CPT/HCPCS: 99212 ==

== ENCOUNTER 2023-04-04 12:36 | Outpatient (AMB) | payer MEDICARE, OTHER, SELFPAY ==
[2023-04-04 12:47] VITALS: BP 130/80; PULSE 88; O2SAT 98; BMI 21.8
--- NOTE | 2023-04-04 12:47 | A.OFFPC_ITS ---
Vital Signs 04/04/23 12:47 Height 5 ft 5 in Weight 131 lb BMI 21.8 BP 130/80 Blood Pressure Location Lt brachial Position Sitting Pulse 88 Pulse Source Pulse Oximeter Pulse Oximetry (%) 98 Oxygen Delivery Method Room Air Intake Visit Reasons: 3 f/u HTN/Pre-op Eye surg 05/09 Allergies scallops Adverse Reaction (Unknown, Verified 04/04/23 12:47) VOMITING Sodium Acetate Allergy (Unknown, Uncoded 04/04/23 12:47) Nausea and Vomiting Medication List - Last Reconciled 04/04/23 by Andrew Sherwood MD calcium carb,lactat-vitamin D3 200 mg-6.25 mcg (250 unit) 1 tab PO DAILY cholecalciferol (vitamin D3) 50 mcg PO DAILY garlic 500 mg PO DAILY hydrochlorothiazide 12.5 mg PO DAILY 90 days Lactobacillus rhamnosus GG (Culturelle) 1 cap PO DAILY multivitamin (One-A-Day Essential tablet) 1 tab PO DAILY pramoxine-zinc acetate 1-0.1 % (Calamine Clear) 1 appl topical TID PRN simvastatin 20 mg PO DAILY 90 days vitamin E (dl, acetate) 45 mg PO DAILY Tobacco use date assessed: 09/20/22 Fall risk assessment: No Falls in past year Last assessed Fall Risk: 04/04/23 Dental Screening Dental Screen Date: 04/04/23 Did you have a dental visit in the last 12 months?: Yes Did you have a dental problem in the last 6 months where you did not have access to dental care?: No Was dental information given to patient?: Patient has dentist HPI 3 f/u HTN/Pre-op Eye surg 05/09 HPI Details 72-year-old female with hypertension hyp ercholesterolemia last seen in December coming in for preoperative evaluation for cataract surgery. Patient is scheduled for 05/09/2023. Patient had recent colonoscopy also January 2023 advised repeat in 3 years. does pickel ball and exercises in [employer] [facility] Medical History Bladder prolapse Closed dislocation of glenohumeral joint Constipation Hypercholesterolemia Hypertension Osteopenia Varicose veins of both lower extremities Surgical History Dermatochalasia H/O colonoscopy H/O: hysterectomy History of appendectomy S/P breast biopsy, right Family History Father Colon cancer Social History (Updated 04/04/23 @ 13:12 by Andrew Sherwood MD) Housing: House Alcohol intake: current Alcohol intake frequency: holidays/special occasions only Alcohol type: wine Patient Tobacco Use Status: Never used Tobacco e-Cigarette/Vaping Use: Never Used Second Hand Smoke Exposure: No service: No Current occupational status: retired Cognitive needs: No Hearing needs: No Vision needs: Yes Questionnaire PHQ-9 Over the last 2 weeks, how often have you been bothered by any of the following problems? 1. Little interest or pleasure in doing things: not at all 2. Feeling down, depressed, or hopeless: not at all 3. Trouble falling or staying asleep, or sleeping too much: not at all 4. Feeling tired or having little energy: not at all 5. Poor appetite or overeating: not at all 6. Feeling bad about yourself - or that you are a failure or have let yourself or your family down: not at all 7. Trouble concentrating on things, such as reading the newspaper or watching television: not at all 8. Moving or speaking so slowly that other people could have noticed. Or the opposite - being so fidgety or restless that you have been moving around a lot more than usual: not at all 9. Thoughts that you would be better off or of hurting yourself in some way: not at all Total score: 0 Depression Screening Interpretation: Negative Depression Screening Done: Yes Source: Developed by Drs. Elliot Sheriff, Leonor Chairez, Jean Vick and colleagues, with an educational grace from [employer]. Thrive Questionnaire Date Thrive assessed: 09/20/22 AUDIT C Alcohol Use Questionnaire (AUDIT-C) 1. How often do you have a drink containing alcohol?: 2-3 times a week 2. How many drinks containing alcohol do you have on a typical day when you are drinking?: 1 or 2 3. How often do you have six or more drinks on one occasion?: Never Total Score: 3 DIMITRI-7 AMB Questionnaire DIMITRI-7 Date DIMITRI - 7 assessed: 09/20/22 Source: Developed by Drs. Elliot Sheriff, Leonor Chairez, Jean Vick and colleagues, with an educational grace from [employer]. Review of Systems Const Denies poor appetite and Denies weakness Eyes Denies no additional complaints ENT Reports Normal hearing present, Denies dizziness, Denies nasal congestion, Denies tinnitus and Denies sore throat Card Denies chest pain, Denies syncope, Denies rapid heart rate and Denies dyspnea Resp Denies cough and Denies dyspnea GI Denies change in stool character, Reports constipation, Denies diarrhea, Denies nausea and Denies vomiting Denies urinary frequency, Denies difficulty voiding and Denies dysuria Neuro Reports Normal hearing present, Denies confusion, Denies dizziness, Denies syncope and Denies weakness Psych Denies confusion Physical exam (Primary Care) Vital Signs: Last Vital Signs Pulse 88 04/04/23 12:47 BP 130/80 04/04/23 12:47 Pulse Ox 98 04/04/23 12:47 Oxygen Delivery Method Room Air 04/04/23 12:47 BMI result Body Mass Index 21.8 Tobacco/Smoking Status: Tobacco use Status Tobacco use date assessed 09/20/22 04/04/23 12:48 Patient Tobacco Use Status Never used Tobacco 04/04/23 13:12 e-Cigarette/Vaping Use Never Used 04/04/23 13:12 PHQ-9: PHQ-9 Score PHQ-9: Total score 0 04/04/23 18:27 Depression Screening Interpretation: Negative Thrive Assessment: Date of Thrive Assessment Date Thrive assessed 09/20/22 04/04/23 12:48 Const General: No confusion Orientation/consciousness: No confusion Eyes Conjunctivae: conjunctivae normal Resp Auscultation: clear to auscultation bilaterally Cardio Rate: regular rate Rhythm: regular rhythm GI Inspection: Yes normal to inspection Neuro General: No confusion Cranial nerves: Yes Normal hearing present Extrem General: Yes normal to inspection and No edema Office Procedures Flu Questionnaire Does the patient have a severe egg allergy?: No Does the patient have severe life threatening allergies?: No Does the patient have a fever or illness today?: No Has the patient ever had Guillain-[place] Syndrome?: No Has the patient ever had any past reaction to a flu shot?: No Immunizations flu vacc [id number] 6mos up(PF) 60 mcg(15 mcgx4)/0.5 mL IM syringe Performing Provider: Andrew Sherwood MD [place] [place] [facility] Documented (not given) by: Heaven Braun CMA on 04/04/23 12:54 Reason Not Given: Patient Refused Assessment and Plan Assessment & Plan (1) Preop exam for internal medicine: Code(s): Z01.818 - Encounter for other preprocedural examination Plan: EKG donNormal sinus rhythm Right bundle branch block Abnormal ECG When compared with ECG of 29-DEC-2015 15:25, Right bundle branch block is now Present Blood work evaluated. Patient belongs to intermediate risk group of cardiac complications as patient is 72 years old but no further workup needed at this time and may proceed with the contemplated procedure. Thank you very much for letting me participate in the care of this patient. (2) Hypertension: Code(s): I10 - Essential (primary) hypertension Plan: Continue with blood pressure medication. Decrease salt intake and exercise continue with hydrochlorothiazide 12.5 mg once a day (3) Hypercholesterolemia: Code(s): E78.00 - Pure hypercholesterolemia, unspecified Plan: Avoid fried foods, chicken skin, eggs, butter margarine, pastries and meat. Be it pork or beef they have a lot of cholesterol on simvastatin 20 mg once a day (4) Cataract: Code(s): H26.9 - Unspecified cataract Orders: Orders ECG 12 lead EKG Today Z01.818 - Encounter for other preprocedural examination Influenza [id number] Immunization Today Z23 - Encounter for immunization Medications: Refilled hydrochlorothiazide 12.5 mg PO DAILY 90 days 90 tabs 3RF M85.859 - Other specified disorders of bone density and structure, unspecified thigh Coding Level of Care Code Est Pt Level 4 (43594) Diagnoses Preop exam for internal medicine Z01.818 Hypertension I10 Hypercholesterolemia E78.00 Cataract H26.9
== END 2023-04-04 13:24 | disposition home or self-care (01) ==
PROVIDERS: PCP Internal Medicine; Visit Provider Internal Medicine
DX: Z01.818 Encounter for other preprocedural examination (principal); I10 Essential (primary) hypertension; E78.00 Pure hypercholesterolemia, unspecified; H26.9 Unspecified cataract; Z23 Encounter for immunization
CPT/HCPCS: 90471; 99214

== ENCOUNTER 2023-04-04 13:29 | Outpatient (REF) | payer MEDICARE, OTHER, SELFPAY ==
--- NOTE | 2023-04-04 13:34 | ECG_ITS ---
Test Reason : preop Blood Pressure : / mmHG Vent. Rate : 067 BPM Atrial Rate : 067 BPM P-R Int : 140 ms QRS Dur : 128 ms QT Int : 440 ms P-R-T Axes : 049 056 024 degrees QTc Int : 464 ms Normal sinus rhythm Right bundle branch block Abnormal ECG When compared with ECG of 29-DEC-2015 15:25, Right bundle branch block is now Present Referred By: Andrew Sherwood Electronically Signed By:DAVINA MATTHEWS
[2023-04-04 13:55] LABS: MANUAL DIFF FLAG NO
[2023-04-04 14:47] LABS: Basophils Absolute Auto 0.1 X10*3/uL (0.0-0.2); Basophils Percent Auto 0.9 % (0-2); Eosinophils Absolute Auto 0.2 X10*3/uL (0.0-0.4); Eosinophils Percent Auto 3.7 % (0-4); Hematocrit 42.5 % (37.0-47.0); Hemoglobin 14.6 g/dl (12.0-16.0); Imm Gran Abs Auto 0.01 X10*3/uL (0.00-0.03); Imm Gran Pct Auto 0.2 % (0.0-0.4); Lymphocytes Absolute Auto 1.5 X10*3/uL (1.2-4.9); Lymphocytes Percent Auto 27.9 % (20-40); Mean Corpuscular HGB Conc 34.4 g/dl (31.0-35.0); Mean Corpuscular Hemoglobin 33.5 pg (27.0-33.0); Mean Corpuscular Volume 97.5 fL (80.0-98.0); Mean Platelet Volume 9.2 fL (9.4-12.3); Monocytes Absolute Auto 0.6 X10*3/uL (0.1-1.2); Monocytes Percent Auto 11.2 % (2-11); Neutrophils Percent Auto 56.1 % (45-73); Platelet Count 265 X10*3/uL (160-400); Red Blood Count 4.36 X10*6/uL (4.20-5.50); Red Cell Distribution Width 12.3 % (11.0-16.0); White Blood Count 5.4 X10*3/uL (4.8-10.8)
[2023-04-04 14:52] LABS: Appearance Urine Clear; Color Urine Yellow; Glucose Urine UA Negative (Negative); Leukocyte Esterase Urine Moderate (2+) (Negative); Nitrite Urine Negative (Negative); PH 5.5 (5.0-9.0); UMIC TRIGGER UA YES; Urine Blood Negative (Negative); Urine Ketones Negative (Negative); Urine Protein Negative (Neg-Trace)
[2023-04-04 14:58] LABS: Bacteria Urine None Seen (None Seen); RBC Urine 0-2 /HPF (0-2)
[2023-04-04 15:39] LABS: Alanine Aminotransferase 9 U/L (0-31); Albumin Level 4.1 g/dL (3.5-5.0); Alkaline Phosphatase 76 U/L (39-117); Anion Gap 12 (12-20); Aspartate Amino Transferase 22 U/L (5-31); Bilirubin Total 0.6 mg/dL (0.0-1.0); Blood Urea Nitrogen 17 mg/dL (9-16); Carbon Dioxide 28 mmol/L (22-29); Chloride 102 mmol/L (96-108); Cholesterol 195 mg/dL (<200); Estimated Glomerular Filt Rate 58; Glucose Random 88 mg/dL (60-115); HDL Cholesterol 73 mg/dL (>40); LDL Cholesterol Calculated 106 mg/dL (<100); Potassium 4.1 mmol/L (3.3-5.1); Sodium 138 mmol/L (135-145); Total Protein 7.4 g/dL (6.5-8.0); Triglycerides 82 mg/dL (<150)
[2023-04-04 15:46] LABS: Free T4 (Free Thyroxine) 0.98 ng/dL (0.71-1.85); Thyroid Stimulating Hormone 1.93 uIU/mL (0.32-4.0); Vitamin D 25-OH Total 78.6 ng/mL (>30)
[2023-04-04 16:01] LABS: Folate 14.1 ng/mL (> or = 4.0); Vitamin B12 757 pg/mL (200-900)
== END 2023-04-04 13:30 | disposition home or self-care (01) ==
LOC: HO.LAB 13:29
PROVIDERS: PCP Internal Medicine; Visit Provider Internal Medicine
DX: Z01.818 Encounter for other preprocedural examination (principal); E78.00 Pure hypercholesterolemia, unspecified; M81.0 Age-related osteoporosis without current pathological fracture; E55.9 Vitamin D deficiency, unspecified
CPT/HCPCS: 36415; 80053; 80061; 81001; 82306; 82607; 82746; 84439; 84443; 85025; 93005

== ENCOUNTER 2023-07-17 11:29 | Outpatient (AMB) | payer MEDICARE, OTHER, SELFPAY ==
--- NOTE | 2023-07-17 13:19 | MHC.OFFWIV ---
Intake Vital Signs 07/17/23 13:20 Height 5 ft 5 in Weight 129 lb 2 oz BMI 21.5 BP 142/90 H Blood Pressure Location Lt brachial Position Sitting Pulse 76 Pulse Source Pulse Oximeter Temp 98.1 F Temp Source Oral Pulse Oximetry (%) 96 Oxygen Delivery Method Room Air Intake Visit Reasons: EP Lower Back Injury (lobby) Intake Note: Pt is here for injury to back due to playing pickle ball on July 05. Patient Tobacco Use Status: Never used Tobacco Allergies scallops Adverse Reaction (Unknown, Verified 07/17/23 13:29) VOMITING Sodium Acetate Allergy (Unknown, Uncoded 04/04/23 12:47) Nausea and Vomiting Do you need a note to return to daycare/school/sports/work: No HPI HPI Comments History of Present Illness Details Patient presents to the walk in today with complaints of back pain after fall She was playing pickle ball, walking backwards and fell onto her back Pain across her lower back, worse with movement and tender to palpation Denies radiation of the pain down either leg Denies numbness, tingling, weakness. Denies new loss of bowel or bladder. Denies saddle anesthesia [facility] Medical History Bladder prolapse Closed dislocation of glenohumeral joint Constipation Hypercholesterolemia Hypertension Osteopenia Varicose veins of both lower extremities Surgical History Dermatochalasia H/O colonoscopy H/O: hysterectomy History of appendectomy S/P breast biopsy, right Family History Father Colon cancer Social History (Updated 04/04/23 @ 13:12 by Andrew Sherwood MD) Housing: House Alcohol intake: current Alcohol intake frequency: holidays/special occasions only Alcohol type: wine Patient Tobacco Use Status: Never used Tobacco e-Cigarette/Vaping Use: Never Used Second Hand Smoke Exposure: No service: No Current occupational status: retired Cognitive needs: No Hearing needs: No Vision needs: Yes Review of Systems Const All systems reviewed & are unremarkable except as noted in HPI and below Physical Exam Vital Signs: Last Vital Signs Temp 98.1 F 07/17/23 13:20 Pulse 76 07/17/23 13:20 BP 142/90 H 07/17/23 13:20 Pulse Ox 96 07/17/23 13:20 Oxygen Delivery Method Room Air 07/17/23 13:20 BMI result Body Mass Index 21.5 General: awake, alert, oriented. Answers questions appropriately. Fully engaged in examination. Skin: warm, dry, intact HEENT: Normocephalic. Hearing intact. Cardiac: External chest normal in appearance. Respiratory: No cough, audible wheezing or stridor. Abdomen: without gross distension. MS: No obvious swelling or deformities. SLR neg bilaterally Tenderness across lower back, nontender over midline lumbar vertebrae ROM intact neg foot drop Neurological: Oriented to person, place, time and situation. Thought process intact. No gait abnormalities appreciated. Psychiatric: Appropriate mood and affect. Good judgment and insight. Results Reviewed Results Reviewed: IMPRESSION: 1. New T12 inferior endplate acute fracture and wedge deformity. 2. 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 No lumbar vertebral acute fracture or dislocation seen. Assessment & Plan Assessment & Plan (1) Back pain: Code(s): M54.9 - Dorsalgia, unspecified Qualifiers: Back pain location: low back pain Chronicity: acute Back pain laterality: bilateral Sciatica presence: without sciatica Qualified Code(s): M54.50 - Low back pain, unspecified (2) Fracture of T12 vertebra: Code(s): S22.089A - Unspecified fracture of T11-T12 vertebra, initial encounter for closed fracture Plan Patient presents to the walkin today with complaints of back pain after trip and fall XR LS ordered: New T12 inferior endplate acute fracture and wedge deformity. Cyclobenzaprine 5mg po TID as needed for muscle spasm Diclofenac 50 mg po BID as needed Lidocaine 5% topical patch, apply to most painful area. on for 12 hours, off for 12 hours. Referral placed to neurospine, patient aware that she will receive a call to schedule appt. All questions and concerns were addressed, patient agrees with the plan. Return here for any new or worsening symptoms. Orders: Orders XR lumbar spine 2-3V Today M54.9 - Dorsalgia, unspecified Referrals Neuro Spine Referral S22.089A - Unspecified fracture of T11-T12 vertebra, initial encounter for closed fracture Medications: New cyclobenzaprine may cause drowsiness. no driving while taking this medication. Do not take with alcohol or other [employer] depressants. 5 mg PO TID PRN 30 tabs 0RF muscle spasm lidocaine 5% leave on most painful area for up to 12 hrs 1 patch topical DAILY 30 ea 0RF diclofenac potassium do not take other NSAIDs while taking this medication. 50 mg PO BID 30 tabs 0RF Coding Level of Care Code Est Pt Level 4 (99394) Diagnoses Acute bilateral low back pain without sciatica M54.50 Back pain location: low back pain Chronicity: acute Back pain laterality: bilateral Sciatica presence: without sciatica Fracture of T12 vertebra S22.136N
[2023-07-17 13:20] VITALS: BP 142/90; PULSE 76; TEMP 36.7; O2SAT 96; BMI 21.5
== END 2023-07-17 14:19 | disposition home or self-care (01) ==
PROVIDERS: PCP Internal Medicine; Visit Provider Registered Nurse Emergency
DX: M54.50 Low back pain, unspecified (principal); S22.089A Unspecified fracture of T11-T12 vertebra, initial encounter for closed fracture
CPT/HCPCS: 99214

== ENCOUNTER 2023-07-17 13:45 | Outpatient (REF) | payer MEDICARE, OTHER, SELFPAY ==
--- NOTE | ~2023-07-17 | XR_ITS ---
EXAMINATION: XR LUMBOSACRAL SPINE CLINICAL INFORMATION: Dorsalgia COMPARISON: Lumbar spine 11/28/2018. TECHNIQUE: Three views of the lumbosacral spine. FINDINGS: Is normal lumbar lordosis. There is minimal levoscoliosis There is a loss of T12 vertebral height inferior endplate fracture and wedge deformity. The lumbar vertebral heights and alignment is preserved. There is loss of disc height at every disc level with ventral spondylosis. The SI joints are symmetrical and normal. XR/XR lumbar spine 2-3V IMPRESSION: 1. New T12 inferior endplate acute fracture and wedge deformity. 2. 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 No lumbar vertebral acute fracture or dislocation seen.
== END 2023-07-17 13:46 | disposition home or self-care (01) ==
LOC: HO.HMGCX 13:45
PROVIDERS: PCP Internal Medicine; Visit Provider Registered Nurse Emergency
DX: M54.9 Dorsalgia, unspecified (principal)
CPT/HCPCS: 72100

== ENCOUNTER 2023-07-21 09:16 | Outpatient (AMB) | payer MEDICARE, OTHER, SELFPAY ==
--- NOTE | 2023-07-21 09:30 | A.SPINEOV_ITS ---
Intake Intake Visit Reasons: fracture T11-T12 Intake Note: Ms. Corbett is here today c/o back pain. 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 She is a pleasant 73-year-old female who comes in today with a chief complaint of low back pain. She reports that on July 05 she was playing pickle ball, walking backwards and fell onto her back. She fell onto a wooden school gym floor. She then developed acute pain across her lower back. She reports that her pain is worse with movement, and relieved by stasis. She denies any lower extremity involvement. She denies numbness / tingling / weakness. She reports no bowel or bladder incontinence since the event. She states that she is attempted to use dbkj-sbv-uapbhgj analgesics (Tylenol/ibuprofen/Diclofenac) and muscle relaxers with only minimal relief of symptoms. She has no prior history of spine injuries, and reports no previous spinal surgeries. She was evaluated and treated for this injury directly after the event at a walk-in clinic. PMH: Cataracts, unspecified hemorrhoids, recurrent constipation, osteopenia, hypertension hyperlipidemia. Social hx: Patient does not smoke, reports no substance use. Medications: Vitamin D3, cyclobenzaprine, diclofenac, hydrochlorothiazide, lidocaine, multivitamin, simvastatin, vitamin-E. Allergies: Sodium acetate. Physical exam: The patient has 5/5 strength in her upper and lower extremities. No sensational deficits. Reflexes are 2+ intact. She is able to ambulate well and rises from seated position without difficulty. (-) Clonus, (-) Dickson's. Imaging review: X-ray of the lumbar spine shows a compression fracture at T12. There is also diffuse spondylosis of the lumbar spine and notable degenerative disc disease worse at L2-3 and L3-4 where there is nearly complete loss of disc space. Impression: Martina is a pleasant 73-year-old female who comes in today with a chief complaint of continued low back pain after falling on her back while playing pickleball a couple of weeks ago. Her x-ray imaging shows a compression fracture at T12. She reports modest relief of symptoms with diclofenac and cyclobenzaprine. I have already spoken about this patient's case with Dr. Ramirez from our physiatry/pain management center. He agreed to take the patient on for evaluation of a T12 kyphoplasty, so I will be referring her to him. He also requested that I order a lumbar MRI to better evaluate for any nerve impingement, so he can best make a decision regarding procedural intervention. Of note she does have a DEXA scan completed in January which shows osteopenia based on the lowest T-score value of -1.7. The patient is agreeable to this plan and all of her questions were answered. Thank you for allowing us to care for your patient. The total time spent with this visit with this patient was 45 minutes reviewing history, physical exam, X-ray imaging review, and implementation of treatment plan or further diagnostic testing Turner Roman MD,PhD [facility] Orders: Orders MR lumbar spine wo con Today S22.000A - Wedge compression fracture of unspecified thoracic vertebra, initial encounter for closed fracture, S22.089A - Unspecified fracture of T11-T12 vertebra, initial encounter for closed fracture Referrals Pain Management Referral S22.089A - Unspecified fracture of T11-T12 vertebra, initial encounter for closed fracture Coding Level of Care Code New Pt Level 4 (38120) Diagnoses Fracture of T12 vertebra S22.089A
== END 2023-07-21 09:57 | disposition home or self-care (01) ==
PROVIDERS: PCP Internal Medicine; Referring Provider Registered Nurse Emergency; Visit Provider Physician Assistant
DX: S22.089A Unspecified fracture of T11-T12 vertebra, initial encounter for closed fracture (principal)
CPT/HCPCS: 99204

== ENCOUNTER → 2023-07-21 09:16 | Outpatient (BNVA) | payer MEDICARE, OTHER, SELFPAY | PROVIDERS: PCP Internal Medicine; Visit Provider Physician Assistant | DX: S22.089A Unspecified fracture of T11-T12 vertebra, initial encounter for closed fracture (principal) | CPT/HCPCS: 99202 ==

== ENCOUNTER 2023-09-04 09:56 | Outpatient (AMB) | payer MEDICARE, OTHER, SELFPAY ==
--- NOTE | 2023-09-04 10:00 | MHC.OFFVIS ---
Intake Vital Signs 09/04/23 10:01 Height 5 ft 5 in Weight 123 lb BMI 20.5 BP 158/77 H Blood Pressure Location Lt brachial Position Sitting Respiration 12 Pulse 107 H Pulse Source Pulse Oximeter Pulse Oximetry (%) 95 Oxygen Delivery Method Room Air Intake Visit Reasons: Follow Up S/p Kypho Refusal Allergies scallops Adverse Reaction (Unknown, Verified 09/04/23 10:02) VOMITING Sodium Acetate Allergy (Unknown, Uncoded 09/04/23 10:02) Nausea and Vomiting Medication List - Last Reconciled 09/04/23 by Meliza Weeks LPN calcium carb,lactat-vitamin D3 200 mg-6.25 mcg (250 unit) 1 tab PO DAILY cholecalciferol (vitamin D3) 50 mcg PO DAILY garlic 500 mg PO DAILY hydrochlorothiazide 12.5 mg PO DAILY 90 days Lactobacillus rhamnosus GG (Culturelle) 1 cap PO DAILY multivitamin (One-A-Day Essential tablet) 1 tab PO DAILY pramoxine-zinc acetate 1-0.1 % (Calamine Clear) 1 appl topical TID PRN simvastatin 20 mg PO DAILY 90 days vitamin E (dl, acetate) 45 mg PO DAILY HPI Follow Up S/p Kypho Refusal HPI Details 73-year-old female who presents today to the office for a new patient evaluation for consideration of T-12 kyphoplasty. The patient reports mid back pain. She was playing pickle ball, walking backwards, and fell onto her back on 07/05/2023. She fell onto a wooden school gym floor. She was evaluated and treated for this injury directly after the event at a walk-in clinic. Her x-ray imaging shows a compression fracture at T12. She rates her pain level at 8/10 in intensity. She describes her pain as an aching sensation. She is able to sleep at night; however, she wakes up with mild pain in the morning. She reports that her pain is worse with movement, and relieved by stasis. She has attempted to use upue-rmj-quykoio analgesics (Tylenol, Ibuprofen, and Diclofenac) and muscle relaxers with only minimal relief of symptoms. She has no prior history of spine injuries and reports no previous spinal surgeries. She has not completed an MRI scan due to anxiety. [facility] Medical History Bladder prolapse Closed dislocation of glenohumeral joint Constipation Hypercholesterolemia Hypertension Osteopenia Varicose veins of both lower extremities Surgical History Dermatochalasia H/O colonoscopy H/O: hysterectomy History of appendectomy S/P breast biopsy, right Family History Father Colon cancer Social History (Updated 04/04/23 @ 13:12 by Andrew Sherwood MD) Housing: House Alcohol intake: current Alcohol intake frequency: holidays/special occasions only Alcohol type: wine Patient Tobacco Use Status: Never used Tobacco e-Cigarette/Vaping Use: Never Used Second Hand Smoke Exposure: No service: No Current occupational status: retired Cognitive needs: No Hearing needs: No Vision needs: Yes Review of Systems Const All systems reviewed & are unremarkable except as noted in HPI and below Physical Exam Vital Signs: Last Vital Signs Pulse 107 H 09/04/23 10:01 Resp 12 09/04/23 10:01 BP 158/77 H 09/04/23 10:01 Pulse Ox 95 09/04/23 10:01 Oxygen Delivery Method Room Air 09/04/23 10:01 BMI result Body Mass Index 20.5 General: Appears afebrile. Alert and oriented. Mood and affect appropriate. Follows and participates in conversation appropriately. Respiratory effort is unlabored. Able to transition from sit to stand unassisted. Ambulates with bilaterally normal heel strike and toe off. There is tenderness to palpation overlying the T-12 spinous process in the mid back. Upper back and low back are not tender to palpation. Results Reviewed Results Reviewed: 07/17/23: XR LUMBOSACRAL SPINE FINDINGS: Is normal lumbar lordosis. There is minimal levoscoliosis There is a loss of T12 vertebral height inferior endplate fracture and wedge deformity. The lumbar vertebral heights and alignment is preserved. There is loss of disc height at every disc level with ventral spondylosis. The SI joints are symmetrical and normal. IMPRESSION: 1. New T12 inferior endplate acute fracture and wedge deformity. 2. 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 No lumbar vertebral acute fracture or dislocation seen. Assessment & Plan Assessment & Plan (1) Fracture of T12 vertebra: Code(s): S22.089A - Unspecified fracture of T11-T12 vertebra, initial encounter for closed fracture (2) Traumatic compression fracture of thoracic vertebra: Code(s): S22.000A - Wedge compression fracture of unspecified thoracic vertebra, initial encounter for closed fracture Plan We had an extensive discussion regarding balloon kyphoplasty as a possible treatment option. A procedure brochure was provided to the patient today. We also reviewed the available imaging today, which showed a compression fracture at the T12 level. I ordered an MRI scan of the thoracic spine for further evaluation of the compression fracture. The patient will follow up to review the MRI scan. Once she has had the MRI scan, we will schedule her for kyphoplasty based on the results. A prescription for Lorazepam was provided to the patient, which needed to be taken prior to the MRI schedule.? Scribed for Dr. Ramirez by Alon Alston, certified medical coder, on 09/04/2023. I, Dr. Ramirez, have personally reviewed and agree with the information entered by the scribe. Medications: New lorazepam Take 2 hours before scheduled MRI 1 mg PO DAILY PRN 1 tab 0RF anxiety Coding Level of Care Code New Pt Level 4 (93435) Diagnoses Fracture of T12 vertebra S22.089A Traumatic compression fracture of thoracic vertebra S22.000A
[2023-09-04 10:01] VITALS: BP 158/77; PULSE 107; RESP 12; O2SAT 95; BMI 20.5
== END 2023-09-04 10:25 | disposition home or self-care (01) ==
PROVIDERS: PCP Internal Medicine; Referring Provider Physician Assistant; Visit Provider Internal Medicine
DX: S22.000A Wedge compression fracture of unspecified thoracic vertebra, initial encounter for closed fracture (principal)
CPT/HCPCS: 99204

== ENCOUNTER → 2023-09-04 09:56 | Outpatient (BNVA) | payer MEDICARE, OTHER, SELFPAY | PROVIDERS: PCP Internal Medicine; Referring Provider Physician Assistant; Visit Provider Internal Medicine | DX: S22.089A Unspecified fracture of T11-T12 vertebra, initial encounter for closed fracture (principal); S22.000A Wedge compression fracture of unspecified thoracic vertebra, initial encounter for closed fracture | CPT/HCPCS: 99202 ==

== ENCOUNTER 2023-09-06 09:24 | Outpatient (REF) | payer MEDICARE, OTHER, SELFPAY ==
--- NOTE | ~2023-09-06 | MM_ITS ---
EXAMINATION: MM SCREENING DIGITAL BREAST TOMOSYNTHESIS, BILATERAL CLINICAL INFORMATION: Screening. Asymptomatic. COMPARISON: Mammography: This study is compared with prior exams dating back to 2019. TECHNIQUE: Digital breast tomosynthesis is performed in both the craniocaudal and mediolateral oblique views along with computer-aided detection (CAD). Synthesized 2D images are generated from the tomosynthesis. FINDINGS: The breasts are heterogeneously dense, which may obscure small masses (ACR BI-RADS breast composition Category c). There are no significant masses, abnormal calcifications, or other abnormalities. There is a tissue marker in the right breast from prior benign percutaneous biopsy. There are architectural changes in the upper outer quadrant of the right breast from prior excisional biopsy. MM/MM tomosynthesis screening BI IMPRESSION: No mammographic evidence of malignancy. ASSESSMENT: BI-RADS BI-RADS 2 - Benign Findings RECOMMENDATION: Routine annual mammography screening. 1 year F/U This examination should not preclude the clinical evaluation of a suspicious palpable abnormality. This patient's information was entered into a reminder system with a target due date for their next mammogram.
== END 2023-09-06 09:25 | disposition home or self-care (01) ==
LOC: HO.MAMMO 09:24
PROVIDERS: PCP Internal Medicine; Visit Provider Internal Medicine
DX: Z12.31 Encounter for screening mammogram for malignant neoplasm of breast (principal)
CPT/HCPCS: 77063; 77067

== ENCOUNTER → 2023-09-06 09:30 | Outpatient (BNV) | payer MEDICARE, OTHER, SELFPAY | PROVIDERS: PCP Internal Medicine; Visit Provider Radiology Diagnostic Radiology | DX: Z12.31 Encounter for screening mammogram for malignant neoplasm of breast (principal) | CPT/HCPCS: 77063; 77067 ==

== ENCOUNTER 2023-10-04 14:40 | Outpatient (AMB) | payer MEDICARE, OTHER, SELFPAY ==
--- NOTE | 2023-10-04 14:48 | A.SPINEOV_ITS ---
Intake Intake Visit Reasons: 1 month f/u Intake Note: Ms. Corbett is here today for a 1month f/u Social Worker Assistant Required: No Allergies scallops Adverse Reaction (Unknown, Verified 09/04/23 10:02) VOMITING Sodium Acetate Allergy (Unknown, Uncoded 09/04/23 10:02) Nausea and Vomiting Assessment & Plan Assessment & Plan (1) Traumatic compression fracture of thoracic vertebra: Code(s): S22.000A - Wedge compression fracture of unspecified thoracic vertebra, initial encounter for closed fracture Qualifiers: Thoracic vertebra fracture level: T12 Fracture type: closed Plan Dear colleague, On 10/04/2023, I saw for follow-up Martina Corbett. She suffered a T12 compression fracture in July after playing pickleball. This severe pain has improved. She complains of a high lumbar pain in the morning and after activity. No motor sensory or other neurological deficits. We have to make a decision if a kyphoplasty is indicated. I will order an MRI of of the lumbar spine to see if the fracture is still active. She will return to see me after the MRI is done. She expressed that she would prefer to have the kyphoplasty done by me. I spent 20 minutes in his consult to review imaging and discussing plan of care. Stephen Roman MD, PhD Spine Fellowship Trained Neurosurgeon Director, [facility] Orders: Orders MR lumbar spine wo con Today S22.000A - Wedge compression fracture of unspecified thoracic vertebra, initial encounter for closed fracture Coding Level of Care Code Est Pt Level 3 (90730) Diagnoses Traumatic compression fracture of thoracic vertebra S22.000A Thoracic vertebra fracture level: T12 Fracture type: closed
== END 2023-10-04 15:06 | disposition home or self-care (01) ==
PROVIDERS: PCP Internal Medicine; Visit Provider Neurological Surgery
DX: S22.000A Wedge compression fracture of unspecified thoracic vertebra, initial encounter for closed fracture (principal)
CPT/HCPCS: 99213

== ENCOUNTER → 2023-10-04 14:40 | Outpatient (BNVA) | payer MEDICARE, OTHER, SELFPAY | PROVIDERS: PCP Internal Medicine; Visit Provider Neurological Surgery | DX: S22.000D Wedge compression fracture of unspecified thoracic vertebra, subsequent encounter for fracture with routine healing (principal); X58.XXXD Exposure to other specified factors, subsequent encounter | CPT/HCPCS: 99212 ==

== ENCOUNTER 2023-10-06 08:38 | Outpatient (REF) | payer MEDICARE, OTHER, SELFPAY ==
[2023-10-06 08:58] LABS: MANUAL DIFF FLAG NO
[2023-10-06 09:26] LABS: Basophils Absolute Auto 0.1 X10*3/uL (0.0-0.2); Eosinophils Absolute Auto 0.3 X10*3/uL (0.0-0.4); Eosinophils Percent Auto 5.9 % (0-4); Hematocrit 42.9 % (37.0-47.0); Hemoglobin 14.7 g/dl (12.0-16.0); Imm Gran Abs Auto 0.01 X10*3/uL (0.00-0.03); Imm Gran Pct Auto 0.2 % (0.0-0.4); Lymphocytes Absolute Auto 1.3 X10*3/uL (1.2-4.9); Lymphocytes Percent Auto 26.5 % (20-40); Mean Corpuscular HGB Conc 34.3 g/dl (31.0-35.0); Mean Corpuscular Hemoglobin 32.7 pg (27.0-33.0); Mean Corpuscular Volume 95.5 fL (80.0-98.0); Mean Platelet Volume 9.1 fL (9.4-12.3); Monocytes Absolute Auto 0.6 X10*3/uL (0.1-1.2); Monocytes Percent Auto 12.3 % (2-11); Neutrophils Absolute Auto 2.7 x10*3/uL (2.0-8.3); Neutrophils Percent Auto 54.1 % (45-73); Platelet Count 245 X10*3/uL (160-400); Red Blood Count 4.49 X10*6/uL (4.20-5.50); Red Cell Distribution Width 12.1 % (11.0-16.0); White Blood Count 5.1 X10*3/uL (4.8-10.8)
[2023-10-06 10:03] LABS: Alanine Aminotransferase 11 U/L (0-31); Albumin Level 4.1 g/dL (3.5-5.0); Alkaline Phosphatase 78 U/L (39-117); Anion Gap 12 (12-20); Aspartate Amino Transferase 20 U/L (5-31); Bilirubin Total 0.6 mg/dL (0.0-1.0); Blood Urea Nitrogen 22 mg/dL (9-16); Calcium 9.5 mg/dL (8.4-10.2); Carbon Dioxide 30 mmol/L (22-29); Chloride 102 mmol/L (96-108); Cholesterol 208 mg/dL (<200); Estimated Glomerular Filt Rate 57; Glucose Random 99 mg/dL (60-115); HDL Cholesterol 73 mg/dL (>40); LDL Cholesterol Calculated 114 mg/dL (<100); Potassium 3.7 mmol/L (3.3-5.1); Sodium 140 mmol/L (135-145); Total Protein 7.5 g/dL (6.5-8.0); Triglycerides 108 mg/dL (<150)
[2023-10-06 10:12] LABS: Free T4 (Free Thyroxine) 0.89 ng/dL (0.71-1.85); Thyroid Stimulating Hormone 2.41 uIU/mL (0.32-4.0); Vitamin D 25-OH Total 74.4 ng/mL (>30)
[2023-10-06 11:38] LABS: Folate 11.3 ng/mL (> or = 4.0); Vitamin B12 691 pg/mL (200-900)
== END 2023-10-06 08:39 | disposition home or self-care (01) ==
LOC: HO.LAB 08:38
PROVIDERS: PCP Internal Medicine; Visit Provider Internal Medicine
DX: I10 Essential (primary) hypertension (principal); E78.00 Pure hypercholesterolemia, unspecified
CPT/HCPCS: 36415; 80053; 80061; 82306; 82607; 82746; 84439; 84443; 85025

== ENCOUNTER 2023-10-10 08:25 | Outpatient (AMB) | payer MEDICARE, OTHER, SELFPAY ==
[2023-10-10 08:28] VITALS: BP 152/80; PULSE 95; O2SAT 97; BMI 20.8
--- NOTE | 2023-10-10 08:28 | MHC.PC.OV ---
Vital Signs 10/10/23 08:28 10/10/23 08:44 Height 5 ft 5 in Weight 125 lb BMI 20.8 BP 152/80 H 150/98 H Blood Pressure Location Lt brachial Lt brachial Position Sitting Sitting Pulse 95 Pulse Source Pulse Oximeter Pulse Oximetry (%) 97 Oxygen Delivery Method Room Air Intake Visit Reasons: 6 month f/u Intake Note: Patient is here to follow up on 6 months Computer Service Technician Required: No Allergies scallops Adverse Reaction (Unknown, Verified 10/10/23 08:29) VOMITING Sodium Acetate Allergy (Unknown, Uncoded 10/10/23 08:29) Nausea and Vomiting Tobacco use date assessed: 10/10/23 Fall risk assessment: No Falls in past year Last assessed Fall Risk: 10/10/23 Dental Screening Dental Screen Date: 04/04/23 HPI 6 month f/u HPI Details 73-year-old female with hypertension, hypercholesterolemia last seen April 2023 for preoperative evaluation for cataract surgery. Patient is up-to-date with mammogram colonoscopy and bone density. Review of the notes has been follow-up with the neurosurgeon regarding the thoracic vertebral wedge compression fracture after playing pickleball T12 concern about kyphoplasty and advised to have an MRI done [facility] Medical History Bladder prolapse Closed dislocation of glenohumeral joint Constipation Hypercholesterolemia Hypertension Osteopenia Varicose veins of both lower extremities Surgical History Dermatochalasia H/O colonoscopy H/O: hysterectomy History of appendectomy S/P breast biopsy, right Family History Father Colon cancer Social History (Updated 04/04/23 @ 13:12 by Andrew Sherwood MD) Housing: House Alcohol intake: current Alcohol intake frequency: holidays/special occasions only Alcohol type: wine Patient Tobacco Use Status: Never used Tobacco e-Cigarette/Vaping Use: Never Used Second Hand Smoke Exposure: No service: No Current occupational status: retired Cognitive needs: No Hearing needs: No Vision needs: Yes Questionnaire Thrive Questionnaire Date Thrive assessed: 10/10/23 I am a: Patient What is your living situation today?: I have a steady place to live Within the past 12 months, did the food you bought not last and you didn't have the money to get more?: Never true Within the past 12 months, did you worry whether your food would run out before you got money to buy more?: Never true Do you have trouble paying for medicines?: No Do you have trouble getting transportation to medical appointments?: No Do you have trouble paying your heating and electricity bill?: No Do you have trouble taking care of your child, family member or friend?: No Do you have trouble with day-to-day activities such as bathing, preparing meals, shopping, managing finances, etc.?: No Are you currently unemployed and looking for a job?: No Are you interested in more education?: No Please select the resources that you would like help with: None Currently or been in a relationship where the following occur: no concerns reported THRIVE Score: 0 AUDIT C Alcohol Use Questionnaire (AUDIT-C) 1. How often do you have a drink containing alcohol?: 2-3 times a week 2. How many drinks containing alcohol do you have on a typical day when you are drinking?: 1 or 2 3. How often do you have six or more drinks on one occasion?: Never Total Score: 3 DIMITRI-7 AMB Questionnaire DIMITRI-7 Date DIMITRI - 7 assessed: 09/20/22 Source: Developed by Drs. Elliot Sheriff, Leonor Chairez, Jean Vick and colleagues, with an educational grace from [employer]. Physical exam (Primary Care) Vital Signs: Last Vital Signs Pulse 95 10/10/23 08:28 BP 152/80 H 10/10/23 08:28 Pulse Ox 97 10/10/23 08:28 Oxygen Delivery Method Room Air 10/10/23 08:28 BMI result Body Mass Index 20.8 Tobacco/Smoking Status: Tobacco use Status Tobacco use date assessed 10/10/23 10/10/23 08:31 Patient Tobacco Use Status Never used Tobacco 10/10/23 08:31 e-Cigarette/Vaping Use Never Used 10/10/23 08:31 Thrive Assessment: Date of Thrive Assessment Date Thrive assessed 10/10/23 10/10/23 08:35 Currently or been in a relationship where the following occur: no concerns reported Const General: alert; No acute distress Eyes Conjunctivae: conjunctivae normal Resp Auscultation: clear to auscultation bilaterally Cardio Rate: regular rate Rhythm: regular rhythm GI Inspection: Yes normal to inspection Extrem General: Yes normal to inspection and No edema Assessment and Plan Assessment & Plan (1) Traumatic compression fracture of thoracic vertebra: Comment: T104 July 2023 Code(s): S22.000A - Wedge compression fracture of unspecified thoracic vertebra, initial encounter for closed fracture Qualifiers: Thoracic vertebra fracture level: T12 Fracture type: closed Plan: Patient is being followed up by neurosurgeon and MRI requested. (2) Hypertension: Code(s): I10 - Essential (primary) hypertension Plan: Continue with blood pressure medication. Decrease salt intake and exercise patient takes hydrochlorothiazide 12.5 mg once a day (3) Hypercholesterolemia: Code(s): E78.00 - Pure hypercholesterolemia, unspecified Plan: Avoid fried foods, chicken skin, eggs, butter margarine, pastries and meat. Be it pork or beef they have a lot of cholesterol LDL goal of less than 130 and triglyceride of less than 150. On simvastatin 20 mg once a day Medications: New lisinopril 5 mg PO DAILY 30 tabs 3RF I10 - Essential (primary) hypertension loratadine 10 mg PO DAILY 30 tabs 5RF I10 - Essential (primary) hypertension Coding Level of Care Code Est Pt Level 4 (40392) Diagnoses Traumatic compression fracture of thoracic vertebra S22.000A Thoracic vertebra fracture level: T12 Fracture type: closed Hypertension I10 Hypercholesterolemia E78.00
[2023-10-10 08:44] VITALS: BP 150/98
== END 2023-10-10 09:00 | disposition home or self-care (01) ==
PROVIDERS: PCP Internal Medicine; Visit Provider Internal Medicine
DX: S22.000A Wedge compression fracture of unspecified thoracic vertebra, initial encounter for closed fracture (principal); I10 Essential (primary) hypertension; E78.00 Pure hypercholesterolemia, unspecified
CPT/HCPCS: 99214

== ENCOUNTER 2023-11-17 12:40 | Outpatient (REF) | payer MEDICARE, OTHER, SELFPAY ==
--- NOTE | ~2023-11-17 | MR_ITS ---
MR LUMBAR SPINE WITHOUT CONTRAST CLINICAL INFORMATION: Wedge compression fracture of thoracic vertebra. COMPARISON: Lumbar spine radiographs July 17, 2023. TECHNIQUE: MRI of the lumbar spine was obtained using routine sequences without contrast. FINDINGS: Progressive severe biconcave edematous compression fracture at T12 exhibiting up to 75% central vertebral body height loss and slight inferior endplate retropulsion. There is bone marrow edema throughout the majority of the T12 vertebral body. A portion of the marrow replacement at this level exhibits rounded contour posteriorly making it difficult to exclude an underlying pathologic lesion. Consider follow-up with a whole-body bone scan. No epidural disease and no mass effect on the lower thoracic cord. No additional acute fractures. No additional sites of bone marrow replacement when accounting for artifact. There is moderate disc volume loss at L1-L2, L2-L3, L3-L4, and L5-S1. Multilevel endplate osteophytes. The conus terminates at the L2 level. Extrarenal pelvises bilaterally. T12-L1: There is a diffuse annular disc bulge that along with facet arthropathy results in moderate to severe left-sided foraminal stenosis with mass effect on the exiting left nerve root. L1-L2: Diffuse annular disc bulge and mild bilateral facet arthropathy. No central canal stenosis. Disc osteophyte and facet arthropathy result in moderate to severe left-sided foraminal stenosis with mass effect on the exiting left L1 nerve root. L2-L3: Diffuse disc osteophyte complex eccentric to the right and moderate bilateral facet arthropathy and ligamentum flavum thickening. No central canal stenosis. There is mild to moderate right and mild left foraminal stenosis. L3-L4: Diffuse disc osteophyte complex with a superimposed right lateral disc protrusion and moderate bilateral facet arthropathy and ligamentum flavum thickening. The right lateral disc osteophyte protrusion results in moderate to severe right-sided foraminal stenosis with mass effect on the exiting right L3 nerve root. L4-L5: Slight grade 1 anterolisthesis. Diffuse disc osteophyte complex and severe bilateral facet arthropathy and ligamentum flavum thickening. No central canal stenosis. Mild to moderate bilateral foraminal encroachment. L5-S1: Diffuse disc osteophyte complex and severe bilateral facet arthropathy. No central canal stenosis. Severe left and moderate to severe right foraminal stenosis with compression of the exiting left greater then right L5 nerve roots. MR/MR lumbar spine wo con IMPRESSION: - Progressive severe biconcave edematous compression fracture at T12 exhibiting up to 75% central vertebral body height loss and slight inferior endplate retropulsion. There is bone marrow edema throughout the majority of the T12 vertebral body. A portion of the marrow replacement at this level exhibits rounded contour posteriorly making it difficult to exclude an underlying pathologic lesion. Consider follow-up with a whole-body bone scan. No epidural disease and no mass effect on the lower thoracic cord. - At L5-S1, multifactorial degenerative changes result in severe left and moderate to severe right foraminal stenosis with compression of the exiting left greater then right L5 nerve roots. - At L3-L4, spondylitic changes result in moderate to severe right-sided foraminal stenosis with mass effect on the exiting right L3 nerve root. - At L1-L2, multifactorial degenerative changes result in moderate to severe left-sided foraminal stenosis with mass effect on the exiting left L1 nerve root. - At T12-L1, spondylitic changes result in moderate to severe left-sided foraminal stenosis with mass effect on the exiting left nerve root.
== END 2023-11-17 12:41 | disposition home or self-care (01) ==
LOC: HO.MRI 12:40
PROVIDERS: PCP Internal Medicine; Visit Provider Neurological Surgery
DX: S22.000A Wedge compression fracture of unspecified thoracic vertebra, initial encounter for closed fracture (principal)
CPT/HCPCS: 72148

== ENCOUNTER 2023-12-13 13:32 | Outpatient (AMB) | payer MEDICARE, OTHER, SELFPAY ==
[2023-12-13 13:38] VITALS: BP 136/68; PULSE 90; O2SAT 97; BMI 20.6
--- NOTE | 2023-12-13 13:38 | A.OFFPC_ITS ---
Vital Signs 12/13/23 13:38 Height 5 ft 5 in Weight 124 lb BMI 20.6 BP 136/68 Blood Pressure Location Lt brachial Position Sitting Pulse 90 Pulse Source Pulse Oximeter Pulse Oximetry (%) 97 Oxygen Delivery Method Room Air Intake Visit Reasons: HTN, T 12 compression fracture, Allergies scallops Adverse Reaction (Unknown, Verified 12/13/23 13:39) VOMITING Sodium Acetate Allergy (Unknown, Uncoded 12/13/23 13:39) Nausea and Vomiting Tobacco use date assessed: 10/10/23 Fall risk assessment: No Falls in past year Last assessed Fall Risk: 12/13/23 Dental Screening Dental Screen Date: 12/13/23 Did you have a dental visit in the last 12 months?: Yes Did you have a dental problem in the last 6 months where you did not have access to dental care?: No Was dental information given to patient?: Patient has dentist HPI HTN, T 12 compression fracture, HPI Details 73-year-old female with a history of tho racic vertebral compression fracture hypertension hypercholesterolemia last seen in 10/21/2023. Patient's mammogram is up-to-date colonoscopy is up-to-date bone density is up-to-date. MRI done 12/21/2023rogressive severe biconcave edematous compression fracture at T12 exhibiting up to 75% central vertebral body height loss and slight inferior endplate retropulsion. There is bone marrow edema throughout the majority of the T12 vertebral body. A portion of the marrow replacement at this level exhibits rounded contour posteriorly making it difficult to exclude an underlying pathologic lesion. Consider follow-up with a whole-body bone scan. No epidural disease and no mass effect on the lower thoracic cord. - At L5-S1, multifactorial degenerative changes result in severe left and moderate to severe right foraminal stenosis with compression of the exiting left greater then right L5 nerve roots. - At L3-L4, spondylitic changes result i n moderate to severe right-sided foraminal stenosis with mass effect on the exiting right L3 nerve root. - At L1-L2, multifactorial degenerative changes result in moderate to severe left-sided foraminal stenosis with mass effect on the exiting left L1 nerve root. - At T12-L1, spondylitic changes result in moderate to severe left-sided foraminal stenosis with mass effect on the exiting left nerve root. cough 2 months - takes allergy med and no hel[p PFSH Medical History Bladder prolapse Closed dislocation of glenohumeral joint Constipation Hypercholesterolemia Hypertension Osteopenia Varicose veins of both lower extremities Surgical History Dermatochalasia H/O colonoscopy H/O: hysterectomy History of appendectomy S/P breast biopsy, right Family History Father Colon cancer Social History (Updated 04/04/23 @ 13:12 by Andrew Sherwood MD) Housing: House Alcohol intake: current Alcohol intake frequency: holidays/special occasions only Alcohol type: wine Patient Tobacco Use Status: Never used Tobacco e-Cigarette/Vaping Use: Never Used Second Hand Smoke Exposure: No service: No Current occupational status: retired Cognitive needs: No Hearing needs: No Vision needs: Yes Questionnaire PHQ-9 Over the last 2 weeks, how often have you been bothered by any of the following problems? 1. Little interest or pleasure in doing things: not at all 2. Feeling down, depressed, or hopeless: not at all 3. Trouble falling or staying asleep, or sleeping too much: not at all 4. Feeling tired or having little energy: not at all 5. Poor appetite or overeating: not at all 6. Feeling bad about yourself - or that you are a failure or have let yourself or your family down: not at all 7. Trouble concentrating on things, such as reading the newspaper or watching television: not at all 8. Moving or speaking so slowly that other people could have noticed. Or the opposite - being so fidgety or restless that you have been moving around a lot more than usual: not at all 9. Thoughts that you would be better off or of hurting yourself in some way: not at all Total score: 0 Depression Screening Interpretation: Negative Depression Screening Done: Yes Source: Developed by Drs. Elliot Sheriff, Leonor Chairez, Jean Vick and colleagues, with an educational grace from [employer]. Thrive Questionnaire Date Thrive assessed: 10/10/23 AUDIT C Alcohol Use Questionnaire (AUDIT-C) 1. How often do you have a drink containing alcohol?: 2-3 times a week 2. How many drinks containing alcohol do you have on a typical day when you are drinking?: 1 or 2 3. How often do you have six or more drinks on one occasion?: Never Total Score: 3 DIMITRI-7 AMB Questionnaire DIMITRI-7 Date DIMITRI - 7 assessed: 12/13/23 Feeling nervous, anxious, or on edge: 0 = Not at all Not being able to stop or control worryin = Not at all Worrying too much about different things: 0 = Not at all Trouble relaxin = Not at all Being so restless that it is hard to sit still: 0 = Not at all Becoming easily annoyed or irritable: 0 = Not at all Feeling afraid as if something awful might happen: 0 = Not at all Total DIMITRI-7 score (0-4 normal; 5-9 mild; 10-14 moderate; 15-21 severe): 0 Source: Developed by Drs. Elliot Sheriff, Leonor Chairez, Jean Vick and colleagues, with an educational grace from [employer]. Physical exam (Primary Care) Vital Signs: Last Vital Signs Pulse 90 12/13/23 13:38 BP 136/68 12/13/23 13:38 Pulse Ox 97 12/13/23 13:38 Oxygen Delivery Method Room Air 12/13/23 13:38 BMI result Body Mass Index 20.6 Tobacco/Smoking Status: Tobacco use Status Tobacco use date assessed 10/10/23 12/13/23 13:47 Patient Tobacco Use Status Never used Tobacco 12/13/23 13:47 e-Cigarette/Vaping Use Never Used 12/13/23 13:47 PHQ-9: PHQ-9 Score PHQ-9: Total score 0 12/13/23 14:15 Depression Screening Interpretation: Negative Thrive Assessment: Date of Thrive Assessment Date Thrive assessed 10/10/23 12/13/23 13:47 Const General: alert; No acute distress Eyes Conjunctivae: conjunctivae normal Resp Auscultation: clear to auscultation bilaterally Cardio Rate: regular rate Rhythm: regular rhythm GI Inspection: Yes normal to inspection Extrem General: Yes normal to inspection and No edema Results AMB Urinalysis, Automated UA Leukoctes 15 Kaylyn/uL Last Edit by Heaven Braun, THERESA on 12/13/23 14:4 0 UA Nitrite Negative Last Edit by Heaven Branu, [facility] on 12/13/23 14:40 UA Urobilinogen 0.2 mg/dL Last Edit by Heaven Braun, [employer] on 12/13/23 14:40 UA Protein 0 mg/dL Last Edit by Heaven Braun, [facility] on 12/13/23 14:40 UA pH 6.0 Last Edit by Heaven Braun, [facility] on 12/13/23 14:40 UA Blood 0 Erick/uL Last Edit by Heaven Braun, [facility] on 12/13/23 14:40 UA Specific [place] 1.025 Last Edit by Heaven Braun, [facility] on 12/13/23 14:40 UA Ketone Negative Last Edit by Heaven Braun, [facility] on 12/13/23 14:40 UA Bilirubin 0 mg/dL Last Edit by Heaven Braun, [facility] on 12/13/23 14:40 UA Glucose 0 mg/dL Last Edit by Heaven Braun, [facility] on 12/13/23 14:40 Assessment and Plan Assessment & Plan (1) Traumatic compression fracture of thoracic vertebra: Comment: T104 July 2023 Code(s): S22.000A - Wedge compression fracture of unspecified thoracic vertebra, initial encounter for closed fracture Qualifiers: Thoracic vertebra fracture level: T12 Fracture type: closed Plan: Patient has been seen by neurosurgeon. (2) Hypercholesterolemia: Code(s): E78.00 - Pure hypercholesterolemia, unspecified Plan: Avoid fried foods, chicken skin, eggs, butter margarine, pastries and meat. Be it pork or beef they have a lot of cholesterol on simvastatin 20 mg once a day (3) Hypertension: Code(s): I10 - Essential (primary) hypertension Plan: Continue with blood pressure medication. Decrease salt intake and exercise on lisinopril 5 mg once a day hydrochlorothiazide 12.5 mg once a day (4) Cough: Code(s): R05.9 - Cough, unspecified Plan: on claritin and advised to change to jesus 180 mg QD Orders: Orders AMB Urinalysis Automated Today S22.000A - Wedge compression fracture of unspecified thoracic vertebra, initial encounter for closed fracture, Z13.9 - Encounter for screening, unspecified Coding Level of Care Code Est Pt Level 4 (13625) Diagnoses Traumatic compression fracture of thoracic vertebra S22.000A Thoracic vertebra fracture level: T12 Fracture type: closed Hypercholesterolemia E78.00 Hypertension I10 Cough R05.9
== END 2023-12-13 14:55 | disposition home or self-care (01) ==
PROVIDERS: PCP Internal Medicine; Visit Provider Internal Medicine
DX: I10 Essential (primary) hypertension (principal); S22.000A Wedge compression fracture of unspecified thoracic vertebra, initial encounter for closed fracture; E78.00 Pure hypercholesterolemia, unspecified; R05.9 Cough, unspecified
CPT/HCPCS: 81003; 99214

== ENCOUNTER 2024-01-09 14:56 | Outpatient (AMB) | payer MEDICARE, OTHER, SELFPAY ==
--- NOTE | 2024-01-09 15:09 | HO.SPINEOV ---
Intake Visit Reasons: MRI F/u Intake Note: Ms. Corbett is here today to F/u on MRI done at [facility]. Fitness Management Director Required: No Allergies scallops Adverse Reaction (Unknown, Verified 01/09/24 15:14) VOMITING Sodium Acetate Allergy (Unknown, Uncoded 12/13/23 13:39) Nausea and Vomiting Assessment & Plan Assessment & Plan (1) Traumatic compression fracture of thoracic vertebra: Comment: July 2023 Code(s): S22.000A - Wedge compression fracture of unspecified thoracic vertebra, initial encounter for closed fracture Category: Medical Qualifiers: Thoracic vertebra fracture level: T12 Fracture type: closed Plan Dear colleague, On 01/08/2024 I saw for final follow-up Martina Corbett. In her last visit to a still complaining of a significant amount of back pain and therefore I ordered an MRI of the thoracic spine to assess the T12 compression fracture. Today she states she has a mild ache when she stands up but otherwise is doing well. Therefore, the MRI findings of hyperintensity of the T12 vertebral body can be ignored as her clinical status is near normal. No kyphoplasty is indicated. She returned to my office if needed. Stephen Roman MD, PhD Spine Fellowship Trained Neurosurgeon Director, [facility] Coding Level of Care Code Est Pt Level 2 (42193) Diagnoses Traumatic compression fracture of thoracic vertebra S22.000A Thoracic vertebra fracture level: T12 Fracture type: closed
== END 2024-01-09 15:50 | disposition home or self-care (01) ==
PROVIDERS: PCP Internal Medicine; Visit Provider Neurological Surgery
DX: S22.000A Wedge compression fracture of unspecified thoracic vertebra, initial encounter for closed fracture (principal)
CPT/HCPCS: 99212

== ENCOUNTER → 2024-01-09 14:56 | Outpatient (BNVA) | payer MEDICARE, OTHER, SELFPAY | PROVIDERS: PCP Internal Medicine; Visit Provider Neurological Surgery | DX: S22.080A Wedge compression fracture of T11-T12 vertebra, initial encounter for closed fracture (principal) | CPT/HCPCS: 99212 ==

== ENCOUNTER 2024-03-07 15:40 | Outpatient (REF) | payer MEDICARE, OTHER, SELFPAY ==
--- NOTE | ~2024-03-07 | MR_ITS ---
EXAMINATION: MR BRAIN WITHOUT AND WITH CONTRAST CLINICAL INFORMATION: 73-year-old with sudden onset of left-sided sensorineural hearing loss. Evaluate for acoustic neuroma. COMPARISON: None available. TECHNIQUE: Multiplanar, multisequence MRI of the brain/IACs was obtained before and after the intravenous administration of 6.0 mL Gadavist. FINDINGS: IACs: Bilaterally symmetric, no mass lesions or abnormal enhancement. CN VII-VIII complexes normal. AICA LOOPS: Type I on right. MEMBRANOUS LABYRINTHS: Normal, no abnormal enhancement, normal fluid signal. CP ANGLE CISTERNS: No mass lesions or abnormal enhancement. BRAIN VOLUME: Within normal limits within the limitations of qualitative assessment. BRAIN AND MENINGES: DWI sequence demonstrates no restricted diffusion to suggest acute or subacute cerebral ischemia. Gradient refocused imaging demonstrates no abnormal susceptibility-weighted signal loss to suggest hemorrhage, hemosiderin staining or abnormal mineralization. There are scattered small, subcentimeter foci of FLAIR/T2 signal hyperintensity in the subcortical and deeper white matter of both cerebral hemispheres at the level of the centrum semiovale and pfeiffer radiata with no abnormal enhancement, likely reflecting chronic ischemic microangiopathy in a patient of this age. There is associated mild bilateral periventricular leukoareosis, which is an age-related phenomenon. No extra-axial fluid collections, space-occupying process, mass lesion, mass effect or pathologic intracranial enhancement are identified. VESSELS: Normal signal voids are seen in the visualized major intracranial vessels. VENTRICLES AND SUBARACHNOID SPACES: The ventricular system and subarachnoid spaces are within normal range; there is no hydrocephalus. ORBITAL STRUCTURES: Right-sided lens replacement noted. Otherwise, the visualized orbital structures are grossly unremarkable within the limitations of the study. OSSEOUS STRUCTURES, SINUSES/MASTOIDS, EXTRACRANIAL SOFT TISSUES: Unremarkable MR/MR head/brain wo/w con IMPRESSION: 1. Normal appearance to the auditory apparatus with a normal appearance to the IACs, inner ear structures and CP angle cisterns. No mass lesions or abnormal enhancement are identified. 2. 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 Electronically signed by: Rafiq Riggins MD 03/25/2024 04:43 PM EDT
[2024-03-07] MEDS: gadobutroL 7.5 ML VIAL IVPUSH (16:14)
== END 2024-03-07 15:41 | disposition home or self-care (01) ==
LOC: HO.MRI 15:40
PROVIDERS: PCP Internal Medicine; Visit Provider Otolaryngology
DX: D33.3 Benign neoplasm of cranial nerves (principal); H91.22 Sudden idiopathic hearing loss, left ear
CPT/HCPCS: 70553; A9585

== ENCOUNTER 2024-05-14 08:28 | Outpatient (AMB) | payer MEDICARE, OTHER, SELFPAY ==
[2024-05-14 08:29] VITALS: BP 150/96; PULSE 106; O2SAT 98; BMI 21.0
--- NOTE | 2024-05-14 08:29 | MHC.PC.OV ---
Vital Signs 05/14/24 08:29 Height 5 ft 5 in Weight 126 lb 0.2 oz BMI 21.0 BP 150/96 H Blood Pressure Location Lt brachial Position Sitting Pulse 106 H Pulse Source Pulse Oximeter Pulse Oximetry (%) 98 Oxygen Delivery Method Room Air Intake Visit Reasons: PE Allergies scallops Adverse Reaction (Unknown, Verified 05/14/24 08:29) VOMITING Sodium Acetate Allergy (Unknown, Uncoded 05/14/24 08:29) Nausea and Vomiting Medication List - Last Reconciled 05/14/24 by Andrew Sherwood MD calcium carb,lactat-vitamin D3 200 mg-6.25 mcg (250 unit) 1 tab PO DAILY cholecalciferol (vitamin D3) 50 mcg PO DAILY hydrochlorothiazide 12.5 mg PO DAILY 90 days Lactobacillus rhamnosus GG (Culturelle) 1 cap PO DAILY lisinopril 5 mg PO DAILY multivitamin (One-A-Day Essential tablet) 1 tab PO DAILY simvastatin 20 mg PO DAILY 90 days vitamin E (dl, acetate) 45 mg PO DAILY Tobacco use date assessed: 10/10/23 Fall risk assessment: No Falls in past year Last assessed Fall Risk: 05/14/24 Dental Screening Dental Screen Date: 12/13/23 Did you have a dental visit in the last 12 months?: No Did you have a dental problem in the last 6 months where you did not have access to dental care?: No Was dental information given to patient?: Patient has dentist HPI PE HPI Details 73-year-old female with a history of hypertension hypercholesterolemia history of thoracic compression fracture coming in for physical exam. Last seen in December 2023. Patient's mammogram is up-to-date colonoscopy is 2022 in the last bone density was 02/19/2023. Review of the notes was seen by ear nose and throat and had an MRI of the brain showing normal auditory apparatus mild chronic ischemic microangiopathy in the white matter of both cerebral hemispheres. Received also note from spine center regarding the thoracic compression fracture patient is doing better with the back pain. BP at home has been good [facility] Medical History Bladder prolapse Closed dislocation of glenohumeral joint Constipation Hypercholesterolemia Hypertension Osteopenia Varicose veins of both lower extremities Surgical History Dermatochalasia H/O colonoscopy H/O: hysterectomy History of appendectomy S/P breast biopsy, right Family History Father Colon cancer Social History (Updated 05/14/24 @ 08:44 by Andrew Sherwood MD) Housing: House Alcohol intake: current Alcohol intake frequency: holidays/special occasions only Alcohol type: wine Comment: 2x a week 1 drink Patient Tobacco Use Status: Never used Tobacco e-Cigarette/Vaping Use: Never Used Second Hand Smoke Exposure: No service: No Current occupational status: retired Cognitive needs: No Hearing needs: No Vision needs: Yes Questionnaire PHQ-9 Over the last 2 weeks, how often have you been bothered by any of the following problems? 1. Little interest or pleasure in doing things: not at all 2. Feeling down, depressed, or hopeless: not at all 3. Trouble falling or staying asleep, or sleeping too much: not at all 4. Feeling tired or having little energy: not at all 5. Poor appetite or overeating: not at all 6. Feeling bad about yourself - or that you are a failure or have let yourself or your family down: not at all 7. Trouble concentrating on things, such as reading the newspaper or watching television: not at all 8. Moving or speaking so slowly that other people could have noticed. Or the opposite - being so fidgety or restless that you have been moving around a lot more than usual: not at all 9. Thoughts that you would be better off or of hurting yourself in some way: not at all Total score: 0 Depression Screening Interpretation: Negative Depression Screening Done: Yes 36236 - PHQ-9 Billing: Yes Source: Developed by Drs. Elliot Sheriff, Leonor Chairez, Jean Vick and colleagues, with an educational grace from [employer]. Thrive Questionnaire Date Thrive assessed: 10/10/23 I am a: Patient What is your living situation today?: I have a steady place to live Within the past 12 months, did the food you bought not last and you didn't have the money to get more?: I choose not to answer this question Within the past 12 months, did you worry whether your food would run out before you got money to buy more?: Never true Do you have trouble paying for medicines?: No Do you have trouble getting transportation to medical appointments?: No Do you have trouble paying your heating and electricity bill?: No Do you have trouble taking care of your child, family member or friend?: No Do you have trouble with day-to-day activities such as bathing, preparing meals, shopping, managing finances, etc.?: No Are you currently unemployed and looking for a job?: No Are you interested in more education?: No Please select the resources that you would like help with: Food Currently or been in a relationship where the following occur: No concerns reported THRIVE Score: 0 AUDIT C Alcohol Use Questionnaire (AUDIT-C) 1. How often do you have a drink containing alcohol?: 2-4 times a month 2. How many drinks containing alcohol do you have on a typical day when you are drinking?: 1 or 2 3. How often do you have six or more drinks on one occasion?: Less than monthly Total Score: 3 DIMITRI-7 AMB Questionnaire DIMITRI-7 Date DIMITRI - 7 assessed: 12/13/23 Feeling nervous, anxious, or on edge: 0 = Not at all Not being able to stop or control worryin = Not at all Worrying too much about different things: 0 = Not at all Trouble relaxin = Not at all Being so restless that it is hard to sit still: 0 = Not at all Becoming easily annoyed or irritable: 0 = Not at all Feeling afraid as if something awful might happen: 0 = Not at all Total DIMITRI-7 score (0-4 normal; 5-9 mild; 10-14 moderate; 15-21 severe): 0 Source: Developed by Drs. Elliot Sheriff, Leonor Chairez, Jean Vick and colleagues, with an educational grace from [employer]. Review of Systems Const Denies poor appetite and Denies weakness Eyes Denies no additional complaints ENT Reports Normal hearing present, Denies dizziness, Denies nasal congestion, Denies tinnitus and Denies sore throat Card Denies chest pain, Denies syncope, Denies rapid heart rate and Denies dyspnea Resp Denies cough and Denies dyspnea GI Denies change in stool character, Reports constipation, Denies diarrhea, Denies nausea and Denies vomiting Denies urinary frequency, Denies difficulty voiding and Denies dysuria Neuro Reports Normal hearing present, Denies confusion, Denies dizziness, Denies syncope and Denies weakness Psych Denies confusion Physical exam (Primary Care) Vital Signs: Last Vital Signs Pulse 106 H 05/14/24 08:29 BP 158/96 H 05/14/24 08:29 Pulse Ox 98 05/14/24 08:29 Oxygen Delivery Method Room Air 05/14/24 08:29 BMI result Body Mass Index 21.0 Tobacco/Smoking Status: Tobacco use Status Tobacco use date assessed 10/10/23 05/14/24 08:30 Patient Tobacco Use Status Never used Tobacco 05/14/24 08:30 e-Cigarette/Vaping Use Never Used 05/14/24 08:30 PHQ-9: PHQ-9 Score PHQ-9: Total score 6 05/14/24 08:30 Depression Screening Interpretation: Negative Thrive Assessment: Date of Thrive Assessment Date Thrive assessed 10/10/23 05/14/24 08:30 Currently or been in a relationship where the following occur: No concerns reported Const General: No confusion Orientation/consciousness: No confusion HENMT Head: Yes normocephalic Ears: external ears normal and TM's normal bilaterally Face and sinus: Yes normal facial exam Mouth: moist mucous membranes Throat: Yes tonsils normal Eyes Conjunctivae: conjunctivae normal Pupils: Equal, round and reactive pupils present and Pupil accommodation reflex normal Direct Ophthalmoscopy: normal light reflex Neck Neck: No lymphadenopathy Thyroid: Thyroid normal Chest Chest palpation & inspection: normal inspection of the chest Resp Effort & Inspection: normal respiratory effort and no audible wheezes Auscultation: clear to auscultation bilaterally, no crackles, no wheezes and lung sounds not diminished Cardio Rate: regular rate Rhythm: regular rhythm Peripheral pulses: radial pulses present and dorsalis pedis present GI Other: guaiac negative Palpation (GI): no masses Auscultation: normal bowel sounds and normoactive bowel sounds Skin General skin exam: no rashes or lesions noted Rashes: no rashes Neuro General: No confusion Cranial nerves: Yes Equal, round and reactive pupils present and Yes Normal hearing present Cognition (Neuro): normal cognition Gait exam (Neuro): Normal gait present Motor exam (neuro): 5/5 motor strength present throughout Deep tendon reflexes (DTR's): Right brachioradialis reflex intensity grade: 2+, Left brachioradialis reflex intensity grade: 2+, Right patellar reflex intensity grade: 2+ and Left patellar reflex intensity grade: 2+ Extrem General: No edema Coding Level of Care Code Est Pt Prev Care >65y(02557) Diagnoses Annual physical exam Z00.00 Primary hypertension I10 Hypertension type: primary hypertension Hypercholesterolemia E78.00 Traumatic compression fracture of T12 thoracic vertebra, sequela S22.080S Thoracic vertebra fracture level: T12 Encounter type: sequela Additional Codes PHQ-9 - 09514 - PHQ-9 Billing: Yes ([id number]) Assessment & Plan Assessment & Plan (1) Annual physical exam: Code(s): Z00.00 - Encounter for general adult medical examination without abnormal findings Category: Medical Plan: Patient is advised to eat healthy, keep well hydrated, keep active and have adequate sleep. (2) Hypertension: Code(s): I10 - Essential (primary) hypertension Category: Medical Qualifiers: Hypertension type: primary hypertension Qualified Code(s): I10 - Essential (primary) hypertension Plan: Continue with blood pressure medication. Decrease salt intake and exercise on lisinopril 5 mg once a day (3) Hypercholesterolemia: Code(s): E78.00 - Pure hypercholesterolemia, unspecified Category: Medical Plan: Avoid fried foods, chicken skin, eggs, butter margarine, pastries and meat. Be it pork or beef they have a lot of cholesterol simvastatin 20 mg once a day LDL goal of less than 130 and triglyceride of less than 150. (4) Traumatic compression fracture of thoracic vertebra: Comment: July 2023 Code(s): S22.000A - Wedge compression fracture of unspecified thoracic vertebra, initial encounter for closed fracture Category: Medical Qualifiers: Thoracic vertebra fracture level: T12 Encounter type: sequela Qualified Code(s): S22.080S - Wedge compression fracture of T11-T12 vertebra, sequela Plan: Patient has met with spine Center, with the back pain resolving no further workup and management needed. Orders: Orders Thyroid Stimulating Hormone 6 Months E78.00 - Pure hypercholesterolemia, unspecified Vitamin B12 and Folate 6 Months E78.00 - Pure hypercholesterolemia, unspecified UA CC w/rflx Micro + Cult 6 Months E78.00 - Pure hypercholesterolemia, unspecified, R30.0 - Dysuria Complete Blood Count Auto Diff 6 Months E78.00 - Pure hypercholesterolemia, unspecified Comprehensive Met. Panel 6 Months E78.00 - Pure hypercholesterolemia, unspecified Free T4 (Free Thyroxine) 6 Months E78.00 - Pure hypercholesterolemia, unspecified Lipid Panel 6 Months E78.00 - Pure hypercholesterolemia, unspecified Vitamin D 25-OH Total 6 Months E78.00 - Pure hypercholesterolemia, unspecified Magnesium 6 Months E78.00 - Pure hypercholesterolemia, unspecified
== END 2024-05-14 09:03 | disposition home or self-care (01) ==
PROVIDERS: PCP Internal Medicine; Visit Provider Internal Medicine
DX: Z00.00 Encounter for general adult medical examination without abnormal findings (principal); I10 Essential (primary) hypertension; E78.00 Pure hypercholesterolemia, unspecified; S22.080D Wedge compression fracture of T11-T12 vertebra, subsequent encounter for fracture with routine healing

== ENCOUNTER → 2024-05-14 08:28 | Outpatient (BNVA) | payer MEDICARE, OTHER, SELFPAY | PROVIDERS: PCP Internal Medicine; Visit Provider Internal Medicine | DX: Z00.00 Encounter for general adult medical examination without abnormal findings (principal); I10 Essential (primary) hypertension; E78.00 Pure hypercholesterolemia, unspecified; S22.080S Wedge compression fracture of T11-T12 vertebra, sequela | CPT/HCPCS: 96127; 99397 ==

== ENCOUNTER 2024-09-11 09:11 | Outpatient (REF) | payer MEDICARE, OTHER, SELFPAY | END 2024-09-11 09:12 | disposition home or self-care (01) | LOC: HO.MAMMO 09:11 | PROVIDERS: PCP Internal Medicine; Visit Provider Internal Medicine | DX: Z12.31 Encounter for screening mammogram for malignant neoplasm of breast (principal) | CPT/HCPCS: 77063; 77067 ==

== ENCOUNTER → 2024-09-11 09:30 | Outpatient (BNV) | payer MEDICARE, OTHER, SELFPAY | PROVIDERS: PCP Internal Medicine; Visit Provider Internal Medicine | DX: Z12.31 Encounter for screening mammogram for malignant neoplasm of breast (principal) | CPT/HCPCS: 77063; 77067 ==

== ENCOUNTER 2025-03-17 10:52 | Outpatient (REF) | payer MEDICARE, OTHER, SELFPAY ==
[2025-03-17 11:07] LABS: MANUAL DIFF FLAG NO
[2025-03-17 11:46] LABS: Hematocrit 41.5 % (37.0-47.0); Hemoglobin 14.2 g/dl (12.0-16.0); Imm Gran Abs Auto 0.01 X10*3/uL (0.00-0.03); Imm Gran Pct Auto 0.2 % (0.0-0.4); Lymphocytes Absolute Auto 1.2 X10*3/uL (1.2-4.9); Mean Corpuscular HGB Conc 34.2 g/dl (31.0-35.0); Mean Corpuscular Hemoglobin 32.6 pg (27.0-33.0); Mean Corpuscular Volume 95.2 fL (80.0-98.0); NRBC Abs Auto 0.000 X10*3/uL (0.0-0.012); NRBC Pct Auto 0.0 /100WBC (0.0-0.2); Platelet Count 260 X10*3/uL (160-400); Red Blood Count 4.36 X10*6/uL (4.20-5.50); White Blood Count 5.4 X10*3/uL (4.8-10.8)
[2025-03-17 12:14] LABS: Appearance Urine Clear; Glucose Urine UA Negative (Negative); PH 5.5 (5.0-9.0); Specific Gravity - Urine >= 1.030 (1.005-1.025); UMIC TRIGGER UACC YES
[2025-03-17 12:20] LABS: UACC Culture Trigger YES
[2025-03-17 12:39] LABS: Alanine Aminotransferase 11 U/L (0-31); Albumin Level 4.1 g/dL (3.5-5.0); Alkaline Phosphatase 96 U/L (39-117); Anion Gap 10 (12-20); Aspartate Amino Transferase 28 U/L (5-31); Blood Urea Nitrogen 16 mg/dL (9-16); Calcium 9.2 mg/dL (8.4-10.2); Carbon Dioxide 29 mmol/L (22-29); Chloride 107 mmol/L (96-108); Cholesterol 221 mg/dL (<200); Estimated Glomerular Filt Rate 49; HDL Cholesterol 60 mg/dL (>40); Magnesium 1.9 mg/dL (1.6-2.6); Potassium 4.1 mmol/L (3.3-5.1); Sodium 142 mmol/L (135-145); Total Protein 7.4 g/dL (6.5-8.0); Triglycerides 117 mg/dL (<150)
[2025-03-17 12:43] LABS: Free T4 (Free Thyroxine) 1.00 ng/dL (0.71-1.85); Thyroid Stimulating Hormone 2.11 uIU/mL (0.32-4.0)
[2025-03-17 12:53] LABS: Folate 12.9 ng/mL (> or = 4.0); Vitamin B12 799 pg/mL (200-900)
--- OUTSIDE RECORDS SUMMARY | 2025-03-17 14:28 | XMS_ITS | Clinical Summary ---
Author Organization [facility] Address [address] [place] [phone] Phone Care Team Providers Care Sharepoint Application Developer Name Role Phone Andrew Sherwood MD Primary Care Provider [phone] Allergies No known active allergies Medications alendronate (FOSAMAX) 70 MG tablet TAKE 1 TABLET ORALLY ONCE A WEEK 2 05/28/2019 Active hydroCHLOROthia zide (MICROZIDE) 12.5 mg capsule Take 12.5 mg by mouth daily. 2 04/14/2019 Active simvastatin (ZOCOR) 20 MG tablet Take 20 mg by mouth nightly at bedtime. Active Social History Tobacco Use Types Packs/Day Years Used Date Smoking Tobacco: Never Smokeless Tobacco: Never Education Answer Date Recorded Are you interested in more education? Not on mariza e 10/28/2022 Are you concerned about learning? Not on file 10/28/2022 No 10/28/2022 No 10/28/2022 Digital Access Answer Date Recorded No 11/26/2022 No 11/26/2022 No 11/26/2022 Reliable internet access at home? Not on file 11/26/2022 Device with a working camera? Not on file Comments Unknown Sex and Gender Information Value Date Recorded Sex Assigned at Not on file Legal Sex Female 1:37 PM EST Gender Identity Not on file Sexual Orientation Not on file Last Filed Vital Signs Vital Sign Reading Time Taken Comments Blood Pressure 136/86 06/07/2019 1:53 PM EST Pulse 75 06/07/2019 1:53 PM EST Temperature 37 C (98.6 F) 06/07/2019 1:53 PM EST Respiratory Rate - - Oxygen Saturation 98% 06/07/2019 1:53 PM EST Inhaled Oxygen Concentration - - Weight 57.6 kg (127 lb) 06/07/2019 1:53 PM EST Height 160 cm (5' 3 ) 06/07/2019 1:53 PM EST Body Mass Index 22.5 06/07/2019 1:53 PM EST Plan of Treatment Health Maintenance Due Date Last Done Comments Adult Td,Tdap Booster 1950 LIPID PANEL 1948 POTASSIUM LEVEL 1948 DEPRESSION SCREENING 1960 HEPATITIS C SCREENING 1966 OSTEOPOROSIS SCREENING INITIAL (ONE-TIME) 2013 RSV VACCINE (1 - 1-dose 75+ series) 2023 INFLUENZA VACCINE (#1) 2025 8, 07/19/2017, 06/17/2015 COVID-19 VACCINE ( season) 2025 09/04/2020, 08/14/2020 ZOSTER VACCINES Completed 09/17/2018, 07/03, 12/20/2015, Additional history exists PNEUMOCOCCAL VACCINES (50+ years) Completed 03/12/2019, 07/19/2017, 12/20/2015, Additional history exists SMOKING STATUS SCREENING (Once After 26 Yrs) Completed 06/07/2019 HEPATITIS A VACCINES Aged Out No long er eligible based on patient's age to complete this topic HIB VACCINES Aged Out No longer eligi ble based on patient's age to complete this topic MENINGOCOCCAL VACCINES (ACWY) Aged Out No longer eligible based on patient's age to complete this topic MENINGOCOCCAL VACCINES (B) Aged Out N o longer eligible based on patient's age to complete this topic Medical Devices Not on file Insurance [facility]ION [facility]IC[facility] SUPPLEMENT MEDICARE PART [facility] & [facility] [employer] MEDICARE SUPPLEMENT MEDICARE PART A & B MEDICARE SUPPLEMENT MEDICARE PART A & B MEDICARE SUPPLEMENT MEDICARE PART A & B Member Subscriber Plan / Payer ( fective 2014-Present) Name:Martina Corbett Member ID:[id number] Relation to Subscriber:Self Name:Martina Corbett Subscriber ID:[id number] Payer ID:[id number] Group ID:Not on file Type:Medicare Address: [email or web address] [address] EXTENSION MEDICARE SUPPLEMENT MEDICARE PART A & B [employer] MEDICARE SUPPLEMENT MEDICARE PART A & B Member Subscriber Plan / Payer (Ef fective 2014-Present) Name:Martina Corbett Member ID:[id number] Relation to Subscriber:Self Name:Martina Corbett Subscriber ID:[id number] Payer ID:[id number] Group ID:Not on file Type:Medicare Address: [employer] [address] EXTENSION MEDICARE SUPPLEMENT MEDICARE PART A & B [employer] EXTENSION MEDICARE SUPPLEMENT MEDICARE PART A & B [facility] EXTENSION MEDICARE SUPPLEMENT Care Teams Sharepoint Application Developer Relationship Specialty Start Date End Date Andrew Sherwood MD [address] [place] [address] [address] [place] [address] [phone] PCP - General Internal Medicine 06/07/19 Additional Source Comments The information contained in this document represents components of the legal health record. It is not the complete legal health record.[facility]
== END 2025-03-17 10:53 | disposition home or self-care (01) ==
LOC: HO.LAB 10:52
PROVIDERS: PCP Internal Medicine; Visit Provider Internal Medicine
DX: E78.00 Pure hypercholesterolemia, unspecified (principal); R30.0 Dysuria; Z13.21 Encounter for screening for nutritional disorder
CPT/HCPCS: 36415; 80053; 80061; 81001; 81003; 82306; 82607; 82746; 83735; 84439; 84443; 85025; 87086

== ENCOUNTER 2025-03-18 14:06 | Outpatient (AMB) | payer MEDICARE, OTHER, SELFPAY ==
[2025-03-18 14:08] VITALS: BP 164/90; PULSE 79; TEMP 36.3; O2SAT 96; BMI 20.9
--- NOTE | 2025-03-18 14:08 | MHC.PC.OV ---
Vital Signs 03/18/25 14:08 Height 5 ft 5 in Weight 125 lb 8 oz BMI 20.9 BP 164/90 H Blood Pressure Location Lt brachial Position Sitting Pulse 79 Pulse Source Pulse Oximeter Temp 97.3 F Temp Source Temporal Artery Scan Pulse Oximetry (%) 96 Oxygen Delivery Method Room Air Intake Visit Reasons: hypertension Allergies scallops Adverse Reaction (Unknown, Verified 03/18/25 14:13) VOMITING Sodium Acetate Allergy (Unknown, Uncoded 03/18/25 14:13) Nausea and Vomiting Tobacco use date assessed: 03/18/25 Fall risk assessment: No Falls in past year Last assessed Fall Risk: 03/18/25 Dental Screening Dental Screen Date: 03/18/25 Did you have a dental visit in the last 12 months?: Yes Did you have a dental problem in the last 6 months where you did not have access to dental care?: No Was dental information given to patient?: Patient has dentist [facility] Medical History Bladder prolapse Closed dislocation of glenohumeral joint Constipation Hypercholesterolemia Hypertension Osteopenia Varicose veins of both lower extremities Surgical History Dermatochalasia H/O colonoscopy H/O: hysterectomy History of appendectomy S/P breast biopsy, right Family History Father Colon cancer Social History (Updated 05/14/24 @ 08:44 by Andrew Sherwood MD) Housing: House Alcohol intake: current Alcohol intake frequency: holidays/special occasions only Alcohol type: wine Comment: 2x a week 1 drink Patient Tobacco Use Status: Never used Tobacco e-Cigarette/Vaping Use: Never Used Second Hand Smoke Exposure: No service: No Current occupational status: retired Cognitive needs: No Hearing needs: No Vision needs: Yes Questionnaire PHQ-9 Over the last 2 weeks, how often have you been bothered by any of the following problems? 1. Little interest or pleasure in doing things: not at all 2. Feeling down, depressed, or hopeless: not at all 3. Trouble falling or staying asleep, or sleeping too much: not at all 4. Feeling tired or having little energy: not at all 5. Poor appetite or overeating: not at all 6. Feeling bad about yourself - or that you are a failure or have let yourself or your family down: not at all 7. Trouble concentrating on things, such as reading the newspaper or watching television: not at all 8. Moving or speaking so slowly that other people could have noticed. Or the opposite - being so fidgety or restless that you have been moving around a lot more than usual: not at all 9. Thoughts that you would be better off or of hurting yourself in some way: not at all Total score: 0 Depression Screening Interpretation: Negative Depression Screening Done: Yes 92212 - PHQ-9 Billing: Yes Source: Developed by Drs. Elliot Sheriff, Leonor Chairez, Jean Vick and colleagues, with an educational grace from [employer] Thrive Questionnaire Date Thrive assessed: 03/18/25 I am a: Patient What is your living situation today?: I have a steady place to live Within the past 12 months, did the food you bought not last and you didn't have the money to get more?: I choose not to answer this question Within the past 12 months, did you worry whether your food would run out before you got money to buy more?: Never true Do you have trouble paying for medicines?: No Do you have trouble getting transportation to medical appointments?: No Do you have trouble paying your heating and electricity bill?: No Do you have trouble taking care of your child, family member or friend?: No Do you have trouble with day-to-day activities such as bathing, preparing meals, shopping, managing finances, etc.?: No Are you currently unemployed and looking for a job?: No Are you interested in more education?: No Please select the resources that you would like help with: Food Currently or been in a relationship where the following occur: No concerns reported THRIVE Score: 0 AUDIT C Alcohol Use Questionnaire (AUDIT-C) 1. How often do you have a drink containing alcohol?: 2-4 times a month 2. How many drinks containing alcohol do you have on a typical day when you are drinking?: 1 or 2 3. How often do you have six or more drinks on one occasion?: Never Total Score: 2 DIMITRI-7 AMB Questionnaire DIMITRI-7 Date DIMITRI - 7 assessed: 03/18/25 Feeling nervous, anxious, or on edge: 0 = Not at all Not being able to stop or control worryin = Not at all Worrying too much about different things: 0 = Not at all Trouble relaxin = Not at all Being so restless that it is hard to sit still: 0 = Not at all Becoming easily annoyed or irritable: 0 = Not at all Feeling afraid as if something awful might happen: 0 = Not at all Total DIMITRI-7 score (0-4 normal; 5-9 mild; 10-14 moderate; 15-21 severe): 0 Source: Developed by Drs. Elliot Sheriff, Leonor Chairez, Jean Vick and colleagues, with an educational grace from [employer] DIMITRI-7 Assessment Billing DIMITRI-7 Assessment Tool: DIMITRI-7 Assessment 11243 Physical exam (Primary Care) Vital Signs: Last Vital Signs Temp 97.3 F 03/18/25 14:08 Pulse 79 03/18/25 14:08 BP 164/90 H 03/18/25 14:08 Pulse Ox 96 03/18/25 14:08 Oxygen Delivery Method Room Air 03/18/25 14:08 BMI result Body Mass Index 20.9 Tobacco/Smoking Status: Tobacco use Status Tobacco use date assessed 03/18/25 03/18/25 14:14 Patient Tobacco Use Status Never used Tobacco 03/18/25 14:14 e-Cigarette/Vaping Use Never Used 03/18/25 14:14 PHQ-9: PHQ-9 Score PHQ-9: Total score 0 03/18/25 14:14 Depression Screening Interpretation: Negative Thrive Assessment: Date of Thrive Assessment Date Thrive assessed 03/18/25 03/18/25 14:14 Currently or been in a relationship where the following occur: No concerns reported Const General: alert; No acute distress Eyes Conjunctivae: conjunctivae normal Resp Auscultation: clear to auscultation bilaterally Cardio Rate: regular rate Rhythm: regular rhythm GI Inspection: Yes normal to inspection Extrem General: Yes normal to inspection and No edema Coding Level of Care Code Est Pt Level 4 (70370) Diagnoses Primary hypertension I10 Hypertension type: primary hypertension Hypercholesterolemia E78.00 Osteopenia of hip, unspecified laterality M85.859 Osteopenia location: hip Laterality: unspecified laterality Tubular adenoma of colon D12.6 Traumatic compression fracture of T12 thoracic vertebra, sequela S22.080S Encounter type: sequela Thoracic vertebra fracture level: T12 Additional Codes DIMITRI-7 Assessment Billing - DIMITRI-7 Assessment Tool: DIMITRI-7 Assessment 94779 ([id number]) PHQ-9 - 26971 - PHQ-9 Billing: Yes ([id number]) Assessment & Plan Assessment & Plan (1) Hypertension: Comment: White coat HTN Code(s): I10 - Essential (primary) hypertension Category: Medical Qualifiers: Hypertension type: primary hypertension Qualified Code(s): I10 - Essential (primary) hypertension Plan: Continue with blood pressure medication. Decrease salt intake and exercise patient on hydrochlorothiazide 12.5 mg once a day lisinopril 5 mg once a day (2) Hypercholesterolemia: Code(s): E78.00 - Pure hypercholesterolemia, unspecified Category: Medical Plan: Cholesterol plan on simvastatin 20 mg once a day. advised retesting (3) Osteopenia: Comment: July 2018January 2021 Code(s): M85.80 - Other specified disorders of bone density and structure, unspecified site Category: Medical Qualifiers: Osteopenia location: hip Laterality: unspecified laterality Qualified Code(s): M85.859 - Other specified disorders of bone density and structure, unspecified thigh Plan: Continue with calcium and vitamin-D. (4) Tubular adenoma of colon: Comment: 2022=1 sessile TA repeat 3 years Code(s): D12.6 - Benign neoplasm of colon, unspecified Category: Medical Plan: Colonoscopy up-to-date (5) Traumatic compression fracture of thoracic vertebra: Comment: July 2023 Code(s): S22.000A - Wedge compression fracture of unspecified thoracic vertebra, initial encounter for closed fracture Category: Medical Qualifiers: Encounter type: sequela Thoracic vertebra fracture level: T12 Qualified Code(s): S22.080S - Wedge compression fracture of T11-T12 vertebra, sequela Plan: Keep active Plan History of Present Illness The patient is a 74-year-old female presenting for a follow-up visit. She has a history of hypertension, managed with hydrochlorothiazide 12.5 mg and lisinopril 5 mg daily. Her blood pressure readings have been variable, with some instances of elevated readings attributed to white coat hypertension. The patient also has hypercholesterolemia, for which she is on simvastatin 20 mg daily. Recent lab results indicate an increase in LDL cholesterol to 138 mg/dL, up from 114 mg/dL previously. Dietary habits were discussed as a potential factor, and a follow-up cholesterol test is planned in three months. She has osteopenia, with the last bone density test conducted in January 2023. The patient is advised to continue calcium and vitamin D supplementation. The patient has a history of tubular adenoma of the colon, with the last colonoscopy performed in January 2023. The colonoscopy is currently up to date. She experienced a traumatic compression fracture of the thoracic vertebra, which is part of the follow-up discussion. A recent urine test raised a question of a urinary tract infection, but the patient reports no symptoms such as dysuria or urinary frequency. Health Maintenance - Mammogram completed in August - Blood work in March 2025 showed normal blood count, electrolytes, and renal function - Cholesterol monitoring with follow-up planned in three months - Colonoscopy up to date as of January 2023 - Vaccinations: COVID-19, shingles, tetanus, and RSV up to date Social History - Dietary habits include consumption of apples with [place] cheese Review of Systems - Genitourinary: Denies dysuria or urinary frequency Physical Exam Results - Labs: Normal blood count, normal electrolytes, renal function at 1.08 mg/dL, LDL cholesterol increased to 138 mg/dL - Urine test: Question of urinary tract infection Plan Patient was informed and verbally consented to the use of an ambient scribe for clinic note documentation during this visit. 1. Hypertension The patient is currently on hydrochlorothiazide 12.5 mg and lisinopril 5 mg daily for hypertension management. Blood pressure readings have shown variability, with some elevated readings attributed to white coat hypertension. No changes to the current medication regimen are planned, but the patient is advised to continue monitoring blood pressure at home. 2. Hypercholesterolemia The patient is on simvastatin 20 mg daily for hypercholesterolemia. Recent labs indicate an increase in LDL cholesterol to 138 mg/dL. A follow-up cholesterol test is planned in three months to reassess levels and dietary habits were discussed as a potential contributing factor. 3. Osteopenia The patient has osteopenia, with the last bone density test conducted in January 2023. She is advised to continue calcium and vitamin D supplementation. 4. Tubular Adenoma Of The Colon The patient has a history of tubular adenoma of the colon, with the last colonoscopy performed in January 2023. The colonoscopy is currently up to date, and no immediate follow-up is required. 5. Traumatic Compression Fracture Of The Thoracic Vertebra The patient has a history of a traumatic compression fracture of the thoracic vertebra, which is part of the follow-up discussion. 6. Urinary Tract Infection (Suspected) A recent urine test raised a question of a urinary tract infection, but the patient reports no symptoms such as dysuria or urinary frequency. No immediate treatment is planned unless symptoms develop. Discussion Notes During the visit, we discussed the patient's current management of hypertension and hypercholesterolemia. I advised the patient to continue her current medications and to monitor her blood pressure at home due to variability in readings, possibly due to white coat hypertension. We also reviewed her cholesterol levels, which have increased, and decided to recheck them in three months while considering dietary factors. The patient's osteopenia management includes continuing calcium and vitamin D supplementation. Her colonoscopy is up to date, and no further action is needed at this time. We discussed the suspected urinary tract infection, noting the absence of symptoms, and agreed to monitor for any developments. Patient Instructions - Continue taking hydrochlorothiazide and lisinopril as prescribed. - Monitor blood pressure at home regularly and note any high readings. - Continue simvastatin for cholesterol management and follow up in three months for re-evaluation. - Maintain calcium and vitamin D supplementation for bone health. - Report any symptoms of urinary tract infection, such as pain or frequency, to the clinic. Orders: Orders Lipid Panel 3 Months E78.00 - Pure hypercholesterolemia, unspecified Comprehensive Met. Panel 3 Months E78.00 - Pure hypercholesterolemia, unspecified
--- OUTSIDE RECORDS SUMMARY | 2025-03-18 17:57 | XMS_ITS | Clinical Summary ---
Author Organization [facility] Address [address] [place] [phone] Phone Care Team Providers Care Dry Press Operator Name Role Phone Andrew Sherwood MD Primary Care Provider [phone] Allergies No known active allergies Medications alendronate [...] file Insurance MEDICARE PART A & B [facility] EXTENSION MEDICARE SUPPLEMENT MEDICARE PART A & B [facility] [employer] MEDICARE SUPPLEMENT MEDICARE PART A & B MEDICARE SUPPLEMENT MEDICARE PART A & B MEDICARE SUPPLEMENT MEDICARE PART A & B Member Subscriber Plan / Payer ( fective 2014-Present) Name:Martina Corbett Member ID:[id number] Relation to Subscriber:Self Name:Martina Corbett Subscriber ID:[id number] Payer ID:[id number] Group ID:Not on file Type:Medicare Address: [employer] [address] EXTENSION MEDICARE SUPPLEMENT MEDICARE PART A & B [employer] MEDICARE SUPPLEMENT MEDICARE PART A & B Member Subscriber Plan / Payer (Ef fective 2014-Present) Name:Martina Corbett Member ID:[id number] Relation to Subscriber:Self Name:Martina Corbett Subscriber ID:[id number] Payer ID:[id number] Group ID:Not on file Type:Medicare Address: [employer] [address] EXTENSION MEDICARE SUPPLEMENT MEDICARE PART A & B [employer] EXTENSION MEDICARE SUPPLEMENT MEDICARE PART A & B [facility] EXTENSION MEDICARE SUPPLEMENT Care Teams Dry Press Operator Relationship Specialty Start Date End Date Andrew Sherwood MD [address] [place] [address] Drive [address] [place] [address] [phone] PCP - General Internal Medicine 06/07/19 Additional Source Comments The information contained in this document represents components of the legal health record. It is not the complete legal health record.[facility]
== END 2025-03-18 15:04 | disposition home or self-care (01) ==
LOC: HO.HMCH 14:07
PROVIDERS: PCP Internal Medicine; Visit Provider Internal Medicine
DX: I10 Essential (primary) hypertension (principal); E78.00 Pure hypercholesterolemia, unspecified; M85.859 Other specified disorders of bone density and structure, unspecified thigh; D12.6 Benign neoplasm of colon, unspecified; S22.080S Wedge compression fracture of T11-T12 vertebra, sequela

== ENCOUNTER → 2025-03-18 14:06 | Outpatient (BNVA) | payer MEDICARE, OTHER, SELFPAY | PROVIDERS: PCP Internal Medicine; Visit Provider Internal Medicine | DX: I10 Essential (primary) hypertension (principal); E78.00 Pure hypercholesterolemia, unspecified; M85.859 Other specified disorders of bone density and structure, unspecified thigh; D12.6 Benign neoplasm of colon, unspecified; S22.080D Wedge compression fracture of T11-T12 vertebra, subsequent encounter for fracture with routine healing; X58.XXXD Exposure to other specified factors, subsequent encounter | CPT/HCPCS: 96127; 99212 ==

== ENCOUNTER 2025-04-01 13:12 | Outpatient (REF) | payer MEDICARE, OTHER, SELFPAY ==
--- OUTSIDE RECORDS SUMMARY | 2025-04-01 14:29 | XMS_ITS | Clinical Summary ---
Author Organization [facility] Address [address] [place] [phone] Phone Care Team Providers Care Homebound Teacher Name Role Phone Andrew Sherwood MD Primary Care Provider [phone] Allergies No known active allergies Medications alendronate [...] file Insurance [facility] PART A & [facility] EXTENSION MEDICARE SUPPLEMENT MEDICARE PART A & [facility] [employer] MEDICARE SUPPLEMENT MEDICARE PART A & B MEDICARE SUPPLEMENT MEDICARE PART A & B MEDICARE SUPPLEMENT MEDICARE PART A & B Member Subscriber Plan / Payer ( fective 2014-Present) Name:Martina Corbett Member ID:[id number] Relation to Subscriber:Self Name:Martina Corbett Subscriber ID:[id number] Payer ID:[id number] Group ID:Not on file Type:Medicare Address: [employer] [address] EXTENSION MEDICARE SUPPLEMENT MEDICARE PART A & B [employer] MEDICARE SUPPLEMENT MEDICARE PART A & B Member Subscriber Plan / Payer (Ef fective 2014-Present) Name:Martina Corbett Member ID:[id number] Relation to Subscriber:Self Name:Martina Corbett Subscriber ID:[id number] Payer ID:[id number] Group ID:Not on file Type:Medicare Address: [employer] [address] EXTENSION MEDICARE SUPPLEMENT MEDICARE PART A & B [employer] EXTENSION MEDICARE SUPPLEMENT MEDICARE PART A & B [facility] EXTENSION MEDICARE SUPPLEMENT Care Teams Homebound Teacher Relationship Specialty Start Date End Date Andrew Sherwood MD [address] [place] [address] [address] [place] [address] [phone] PCP - General Internal Medicine 06/07/19 Additional Source Comments The information contained in this document represents components of the legal health record. It is not the complete legal health record.[facility]
[2025-04-01 14:34] LABS: Appearance Urine Clear; Glucose Urine UA Negative (Negative); PH 5.5 (5.0-9.0); Specific Gravity - Urine 1.025 (1.005-1.025); UMIC TRIGGER UACC YES
[2025-04-01 14:50] LABS: UACC Culture Trigger YES
== END 2025-04-01 13:13 | disposition home or self-care (01) ==
LOC: HO.LAB 13:12
PROVIDERS: PCP Internal Medicine; Visit Provider Internal Medicine
DX: R30.0 Dysuria (principal); E78.00 Pure hypercholesterolemia, unspecified; R39.9 Unspecified symptoms and signs involving the genitourinary system
CPT/HCPCS: 81001; 81003; 87086